=== PATIENT | female | born 1950 | race Caucasian/White ===

== ENCOUNTER 2020-05-08 14:52 | Emergency (ER) | payer MEDICARE, SELFPAY ==
--- NOTE | ~2020-05-08 | CT_ITS ---
EXAMINATION: CT abdomen pelvis wo con DATE: 05/08/2020 15:44 INDICATION: Left lower quadrant abdominal pain. Kidney stone. TECHNIQUE: Computed tomography (CT) of the abdomen and pelvis was performed without intravenous contr ast. Automated exposure control and iterative reconstruction technique were employed. The dose-length product was 506.94 mGy-cm. COMPARISON: None. FINDINGS: The visualized portions of the lung bases demonstrate mild atelectasis. No pleural effusion . The heart size is normal. No pericardial effusion. The liver and spleen are normal. There is a gall stone in the gallbladder, which is normal in size. The pancreas and right adrenal gland are normal. T here is a 2.4 cm mass in left adrenal gland measuring low-attenuation, consistent with an adenoma. Th e kidneys are normal. There is no urolithiasis. There is diverticulosis of the colon without evidence of diverticulitis. There is fat stranding around an epiploic appendage of distal descending colon, c onsistent with epiploic appendagitis. The appendix is normal. There are no dilated loops of bowel. Th ere are no pathologically enlarged lymph nodes. There is no free intraperitoneal fluid. There is fat stranding at the root of the small bowel mesentery, consistent with edema versus inflammation (mesent merrick panniculitis). There is mild thoracic spondylosis and moderate lumbar spondylosis. IMPRESSION: 1. Epiploic appendagitis involving distal descending colon. 2. No urolithiasis. Reviewed, dictated and finalized at location A. N RESOURCES BENEFITS ASSISTANT
[2020-05-08 14:56] VITALS: BP 135/79; PULSE 84; RESP 15; TEMP 36.2; O2SAT 96
--- NOTE | 2020-05-08 15:20 | ED.ABDPAIN ---
HPI - Abdominal Pain General Chief Complaint: Abdominal Pain Stated Complaint: L ABD PAIN Time Seen by Provider: 05/08/20 15:19 Source: patient Mode of arrival: ambulatory Limitations: no limitations History of Present Illness HPI narrative: 70 years old white female presents with intermittent left lower quadrant pain for the last 3 days, almost constant lately. Worse with localized pressure, patient denies radiation of pain, nausea, vomiting, urinary symptoms, fever, chills. History of section x1, partial hysterectomy secondary to fibroid tumor. Related Data Home Medications Medication Instructions Recorded Confirmed amlodipine 05/08/20 lisinopril 05/08/20 metformin mg 05/08/20 omeprazole 05/08/20 Allergies Allergy/AdvReac Type Severity Reaction Status Date / Time iodine Allergy Unknown Anaphylactic Verified 05/08/20 15:11 Shock iohexol Allergy Anaphylactic Verified 05/08/20 15:11 [From contrast - CT, X-RAY] Shock Penicillins AdvReac Unknown Unknown Verified 05/08/20 15:11 Review of Systems Review of Systems: Narrative: CONSTITUTIONAL: Denies fever, chills, or sweats. EYES: Denies visual changes, redness, or discharge. ENT: Denies rhinorrhea, congestion, sore throat, or otalgia. CARDIOVASCULAR: Denies chest pain, palpitations, or edema. RESPIRATORY: Denies cough or dyspnea. GASTROINTESTINAL: Denies abdominal pain, nausea, vomiting, or diarrhea. GENITOURINARY: Denies dysuria or hematuria. SKIN: Denies rash or itching. MUSCULOSKELETAL: Denies back pain, joint pain, or myalgia. NEUROLOGIC: Denies headache, numbness, or weakness. PSYCHIATRIC: Denies anxiety or depression. PMFSH Social History Social History Gender identity (if verbalized by the patient): Female Exam Narrative: Exam Narrative: General appearance: Well-developed, well-nourished Skin: Normal color Head: Normocephalic, nontraumatic Eyes: Clear conjunctiva ENT: Oropharynx normal, ears normal, nose normal Neck: Supple, nontender Chest and respiratory: Airway patent, no respiratory distress, no accessory muscle use Heart: Regular rate/rhythm Abdomen: Soft, moderate tenderness left lower quadrant, no guarding or rebound, no organomegaly, quiet bowel sounds Vascular: Normal peripheral pulses, normal capillary refill. Musculoskeletal: Normal range of motion, nontender back Neurologic: Alert and oriented ?3, STEAM TABLE WORKER is normal as tested, no gross motor deficit Course Course Emergency Course: Stable PEDIATRIC OPHTHALMOLOGIST/PA Physician Supervision Patient feeling much better after IV morphine. Currently is asymptomatic. Reevaluation(s) Date: 05/08/20 Time: 16:28 Vital Signs Vital signs: Vital Signs Temperature 36.2 C L 05/08/20 14:56 Pulse Rate 84 05/08/20 14:56 Respiratory Rate 15 05/08/20 14:56 Blood Pressure 135/79 05/08/20 14:56 Pulse Oximetry 96 05/08/20 14:56 Temperature 36.2 C L 05/08/20 14:56 Pulse Rate 84 05/08/20 14:56 Respiratory Rate 15 05/08/20 14:56 Blood Pressure 135/79 05/08/20 14:56 Pulse Oximetry 96 05/08/20 14:56 MDM - Abdominal Pain MDM Narrative Medical decision making narrative: Patient presents with left lower quadrant pain. Labs, CT abdomen and pelvis with IV contrast, IV fluid ordered. Diverticulitis is my concern. Further plan to follow Differential Diagnosis Differential diagnosis: Likely constipation, diverticulitis and small bowel obstruction Critical Care Time Critical Care Time Critical Care Time: Yes Total Critical Care Time: 20 Discharge Plan Discharge Clinical Impression: Epiploic appendagitis Instructions: Antibiotic Form
--- NOTE | 2020-05-08 15:38 | PC.NURSE ---
Patient to CT at this time.
[2020-05-08 15:44] LABS: Basophils Absolute Auto 0.1 K/mm3 (0.0-0.1); Basophils Percent Auto 0.8 % (0.2-1.2); Eosinophils Absolute Auto 0.1 K/mm3 (0-0.3); Eosinophils Percent Auto 1.4 % (0-4.4); Hematocrit 40.9 % (37.0-47.0); Hemoglobin 13.8 g/dL (12.0-15.0); Immature Granulocyte Absolute 0.02 K/mm3 (0.00-0.031); Immature Granulocyte Percent A 0.2 % (0-0.5); Lymphocytes Absolute Auto 2.19 K/mm3 (0.9-3.2); Lymphocytes Percent Auto 25.6 % (18.3-44.2); Mean Corpuscular HGB Conc 33.7 g/dl (32-36); Mean Corpuscular Hemoglobin 31.4 pg (26-34); Mean Corpuscular Volume 93.2 fl (80-100); Mean Platelet Volume 9.9 fl (7.4-10.4); Monocytes Absolute Auto 0.7 K/mm3 (0.1-0.6); Monocytes Percent Auto 7.7 % (2.6-8.5); Neutrophils Absolute Auto 5.5 K/mm3 (1.3-6.7); Neutrophils Percent Auto 64.3 % (45.5-73.1); Platelet Count Result 273 k/mm3 (150-375); Red Blood Count 4.39 M/mm3 (4.2-5.4); Red Cell Distribution Width 12.3 % (11.5-14.5); White Blood Count 8.6 K/mm3 (4.5-10.0)
[2020-05-08 15:46] LABS: Add Urine Microscopic? NO; Appearance Urine Clear (Clear); Bilirubin Urine Negative (Negative); Blood Urine Negative (Negative); Color Urine Yellow (Yellow); Glucose Urine UA Negative (Negative); Ketones Urine Negative (Negative); Leukocyte Esterase Ur Negative LEU/UL (Negative); Nitrate Urine Negative (Negative); Protein Urine Negative (Negative); Specific Grav Ur 1.014 (1.001-1.035); Urobilinogen Urine Negative mg/dL (<2.0)
[2020-05-08] MEDS: SODIUM CHLORIDE 0.9% IV 1,000 ML 999 ML IV CONT (15:48)
[2020-05-08] MEDS: MORPHINE SULFATE (*CRX) 4 MG/ML INJ IV PUSH (15:48)
[2020-05-08] MEDS: ONDANSETRON INJ 4 MG/2 ML VIAL IV PUSH (15:48)
[2020-05-08 15:55] LABS: Alanine Aminotransferase 25 U/L (4-35); Albumin Level 4.2 g/dL (3.5-5.1); Alkaline Phosphatase 63 U/L (38-126); Anion Gap 5 mmol/L (8-16); Aspartate Amino Transferase 23 U/L (14-36); Bilirubin,Total 0.4 mg/dL (0.2-1.3); Blood Urea Nitrogen 17 mg/dL (7-17); Calcium 9.3 mg/dL (8.4-10.2); Carbon Dioxide 28 mmol/L (22-30); Chloride 106 mmol/L (98-107); Estimated CRCL calculation 66 ml/min; Estimated Glomerular Filt Rate > 60; Glucose 136 mg/dL (65-105); Lipase 351 U/L (23-300); Potassium 3.9 mmol/L (3.4-5.0); Sodium 139 mmol/L (137-145)
[2020-05-08 17:00] VITALS: BP 146/65; PULSE 66; RESP 20; TEMP 36.8; O2SAT 100
== END 2020-05-08 17:00 | disposition home or self-care (01) ==
PROVIDERS: Emergency Provider Emergency Medicine
DX: K63.89 Other specified diseases of intestine (principal)
CPT/HCPCS: 36415; 74176; 80053; 81003; 83690; 85025; 96361; 96374; 96375; 99284; J2270; J2405; J7030

== ENCOUNTER 2021-06-07 13:32 | Inpatient (IN) | payer MEDICARE, SELFPAY ==
[2021-06-07] VITALS (33 sets, daily range): BP systolic 105–146; BP diastolic 72–103; PULSE 83–144; RESP 16–29; TEMP 36.1–36.7; O2SAT 84–100; BMI 33.5
--- NOTE | ~2021-06-07 | NM_ITS ---
EXAMINATION: NM pulmonary perfusion DATE: 06/07/2021 17:27 INDICATION: Dyspnea. Mid sternal chest pain. TECHNIQUE: 5.1 mCi Tc-99m MAA by intravenous route. Scintigraphic images of the chest were obtained. COMPARISON: Chest radiograph dated 06/07/2021 FINDINGS: There is relatively homogeneous perfusion throughout the lungs. No discrete perfusion defects identi fied. IMPRESSION: 1. Low probability for pulmonary embolism. Reviewed, dictated and finalized at location A. FACTURING CONTROLLER
--- NOTE | ~2021-06-07 | XR_ITS ---
EXAMINATION: XR chest 2V DATE: 06/07/2021 14:12 INDICATION: Midsternal chest pain. TECHNIQUE: Frontal and lateral views of the chest were obtained. COMPARISON: CT abdomen and pelvis 05/08/2020 FINDINGS: There is a diffuse interstitial pattern in the lungs. No pleural effusion or pneumothorax. The heart size is normal. IMPRESSION: 1. Diffuse interstitial pattern in the lungs, likely mild pulmonary edema. Reviewed, dictated and finalized at location A. UNICATION ARTS LECTURER
--- NOTE | 2021-06-07 13:36 | ECG_ITS ---
Measurements Intervals [place] Rate: 128 P: 30 DC: 147 QRS: 1 QRSD: 98 T: 93 QT: 323 QTc: 473 Interpretive Statements SINUS TACHYCARDIA DELAYED PRECORDIAL R/S TRANSITION MINIMAL Q WAVES- HIGH LATERAL LEADS BORDERLINE T WAVE ABNORMALITY- LAT/HIGH LAT LEADS ABNORMAL ECG Electronically Signed On 06-07-2021 13:59:52 WARP TRUCKER by Sandro Savage D.O.
--- NOTE | 2021-06-07 13:42 | ED.CHESTPAIN ---
HPI - Chest Pain General Chief Complaint: Chest Pain Stated Complaint: chest pain Time Seen by Provider: 06/07/21 13:42 Source: patient and family Mode of arrival: ambulatory Limitations: no limitations History of Present Illness HPI narrative: Patient is a 71-year-old female with a history of hypertension, hyperlipidemia, presenting for evaluation of chest pain. Patient reports chest pain that began after she had an argument with her daughter. Patient reports radiation of the pain to her back. She denies shortness of breath. She denies pleuritic pain. No cough or hemoptysis. No recent illnesses. Patient states she has a history of Covid a year ago for which she did not require hospitalization. No longstanding Covid symptoms. Patient denies abdominal pain, flank pain. She denies urinary symptoms. No recent surgeries, immobilization. Denies leg swelling or calf pain. Patient has a history of stress test which has been normal in the past. Patient does not smoke. She does have a family history of coronary artery disease. Patient reports dull, aching sensation over her chest. Denies radiation to the shoulder, neck, jaw. Denies arm pain, abdominal pain. Related Data Home Medications Medication Instructions Recorded Confirmed amlodipine 05/08/20 lisinopril 05/08/20 metformin mg 05/08/20 omeprazole 05/08/20 Allergies Allergy/AdvReac Type Severity Reaction Status Date / Time iodine Allergy Unknown Anaphylactic Verified 05/08/20 15:11 Shock iohexol Allergy Anaphylactic Verified 05/08/20 15:11 [From contrast - CT, X-RAY] Shock Penicillins AdvReac Unknown Unknown Verified 05/08/20 15:11 Review of Systems Review of Systems: CONSTITUTIONAL: Denies fever, chills, or sweats. EYES: Denies visual changes, redness, or discharge. ENT: Denies rhinorrhea, congestion, sore throat, or otalgia. CARDIOVASCULAR: Reports chest pain without palpitations or edema RESPIRATORY: Denies cough or dyspnea. GASTROINTESTINAL: Denies abdominal pain, nausea, vomiting, or diarrhea. GENITOURINARY: Denies dysuria or hematuria. SKIN: Denies rash or itching. MUSCULOSKELETAL: Denies back pain, joint pain, or myalgia. NEUROLOGIC: Denies headache, numbness, or weakness. [facility] Social History Social History (Updated 06/07/21 @ 14:48 by Shanna Farah MD) Smoking status: Never smoker Alcohol intake: never Substance use: never Living arrangements: with family Gender identity (if verbalized by the patient): Female Exam Narrative: GENERAL: Awake, alert, conversant HEAD: Normocephalic, atraumatic. EYES: PERRLA and EOMI. ENT: Nares clear, no rhinorrhea or epistaxis. Mucous membranes moist. NECK: Supple. CHEST: Mild tachypnea, coarse breath sounds bilaterally, crackles right lower lobe, no chest wall tenderness HEART: Tachycardic rate, sinus rhythm ABDOMEN:Non distended, non tender EXTREMITIES: Normal range of motion. No edema. SKIN: Warm, dry, no rash. NEURO:No focal deficits. Alert and oriented x3 Course Vital Signs Vital signs: Vital Signs Temperature 36.7 C 06/07/21 13:41 Pulse Rate 125 H 06/07/21 13:41 Respiratory Rate 20 06/07/21 13:41 Blood Pressure 146/95 H 06/07/21 13:41 Pulse Oximetry 94 06/07/21 13:41 Temperature 36.7 C 06/07/21 13:41 Pulse Rate 119 H 06/07/21 15:15 Respiratory Rate 25 H 06/07/21 15:31 Blood Pressure 105/79 06/07/21 14:01 Pulse Oximetry 97 06/07/21 15:34 MDM - Chest Pain MDM Narrative Medical decision making narrative: Patient presenting for evaluation of chest pain. At the time of assessment, patient is tachycardic, hypertensive. Mildly tachypneic with coarse breath sounds, crackles in the right lower lobe. Patient without lower extremity edema, calf pain, tenderness. Differential includes acute CHF exacerbation, STEMI versus unstable angina versus PE, infection. IV access obtained and labs are drawn. Patient was given aspirin, nitroglycerin. P
[2021-06-07] MEDS: ASPIRIN 81 MG CHEWABLE TABLET 324 MG PO (14:17)
--- NOTE | 2021-06-07 14:19 | PC.NURSE ---
Called lab and spoke to Malini to add on D-Dimer
[2021-06-07 14:20] LABS: Basophils Absolute Auto 0.1 K/mm3 (0.0-0.1); Basophils Percent Auto 0.5 % (0.2-1.2); Eosinophils Absolute Auto 0.1 K/mm3 (0-0.3); Eosinophils Percent Auto 0.6 % (0-4.4); Hemoglobin 13.6 g/dL (12.0-15.0); Immature Granulocyte Absolute 0.05 K/mm3 (0.00-0.031); Immature Granulocyte Percent A 0.4 % (0-0.5); Lymphocytes Absolute Auto 2.11 K/mm3 (0.9-3.2); Lymphocytes Percent Auto 18.5 % (18.3-44.2); Mean Corpuscular HGB Conc 33.2 g/dl (32-36); Mean Corpuscular Hemoglobin 30.8 pg (26-34); Mean Platelet Volume 10.1 fl (7.4-10.4); Monocytes Absolute Auto 0.6 K/mm3 (0.1-0.6); Monocytes Percent Auto 5.4 % (2.6-8.5); Neutrophils Absolute Auto 8.5 K/mm3 (1.3-6.7); Neutrophils Percent Auto 74.6 % (45.5-73.1); Platelet Count Result 285 k/mm3 (150-375); Red Blood Count 4.41 M/mm3 (4.2-5.4); Red Cell Distribution Width 13.4 % (11.5-14.5); White Blood Count 11.4 K/mm3 (4.5-10.0)
[2021-06-07 14:24] LABS: INR 0.9; Prothrombin Time 11.3 Seconds (11.1-14.7)
[2021-06-07 14:25] LABS: Partial Thromboplastin Time 25.7 SECONDS (22.3-36.8)
[2021-06-07 14:28] LABS: D Dimer 0.54 ug/mL (<0.48)
[2021-06-07] MEDS: ONDANSETRON INJ 4 MG/2 ML VIAL IV PUSH (14:32)
[2021-06-07] MEDS: MORPHINE SULFATE (*CRX) 4 MG/ML INJ IV PUSH (14:32)
[2021-06-07] MEDS: SODIUM CHLORIDE 0.9% IV 1,000 ML 999 ML IV CONT (14:33)
[2021-06-07 15:00] LABS: NT Pro B Type Natriuretic Pept 1230 pg/mL (5-100)
[2021-06-07] MEDS: NITROGLYCERIN SL 0.4 MG TABLET SUBLINGUAL (15:06)
[2021-06-07] MEDS: FUROSEMIDE INJ 40 MG/4 ML VIAL 20 MG IV PUSH (15:06)
--- NOTE | 2021-06-07 15:13 | PC.NURSE ---
Called lab and spoke to Shanna to add on MG
[2021-06-07] MEDS: MAGNESIUM SULF 2 GM/WATER 50ML 2 GM/50 ML BAG IVPB (15:24)
[2021-06-07 15:26] LABS: Alveolar/Arterial O2 Gradient 550.2 mmHg; Base Excess ABG -2.7 mEq/l (+/-2.0); Carboxyhemoglobin 0.6 % THb (0-2.0); Fractional Inspired Oxygen 100 %; HCO3 ABG 22.4 mEq/l (22.0-26.0); Methemoglobin ABG 0.1 %THb (0-1.5); Oxygen Content ABG 19.8 %vol (16.0-22.0); Oxygen Saturation ABG 98.3 % (95.0-100.0); PO2 ABG 122.8 mmHg (80.0-100.0); PO2 FiO2 Ratio Arterial Blood 1.23 %; Reduced Hemoglobin 2.3 %THb (0-5.0); Total Hemoglobin 14.4 g/dL (12.0-18.0); pH ABG 7.366 (7.350-7.450)
[2021-06-07 15:27] LABS: Device BIPAP; Expiratory Pressure 5 cmH2O; Inspiratory Pressure 12 cmH2O; Modified Allen's Test Pass; Site Drawn LEFT RADIAL
[2021-06-07 15:28] LABS: Magnesium 1.9 mg/dL (1.6-2.3)
[2021-06-07] MEDS: diphenhydrAMINE HCl INJ 50 MG/ML VIAL IV PUSH (15:37)
[2021-06-07] MEDS: methylPREDNISolone SOD SUCC 125 MG VIAL IV PUSH (15:38)
--- NOTE | 2021-06-07 16:10 | PM.IMHP ---
H&P: HPI History of Present Illness Date/Time: 06/07/21 16:10 Chief Complaint: Chest pain. Narrative: This is 71-year-old female with hypertension, hyperlipidemia, diet-controlled diabetes mellitus, and GERD who presented to the emergency department for evaluation of chest pain. She had an argument with her daughter this morning and shortly thereafter she started to experience substernal chest discomfort that she describes as sharp in nature though occasionally dull and aching. The pain was constant but has improved significantly since she was given aspirin, morphine, and nitroglycerin in the emergency department. The pain did not radiate and she did not notice any significant aggravating factors. She denies associated near-syncope, diaphoresis, nausea, and vomiting. Interestingly, she also denies shortness of breath however in the emergency department her SpO2 dropped to well into the low 80s requiring BiPAP at 100% FiO2 to bring her oxygen saturations up into the 90s. Chest x-ray showed diffuse interstitial pattern in the lungs felt to be related to pulmonary edema. Bedside echocardiogram with Dr. Farah showed Grady B lines consistent with pulmonary edema and a reduced ejection fraction and she is being admitted in this setting. Initially the patient did not want to stay in the hospital as she and her are to be traveling to [place] tomorrow though after a fairly lengthy discussion she agreed to stay overnight. She has no known history of coronary artery disease and has no history of venous thromboembolism. She has not had exertional chest pain or pleuritic pain. No palpitations, orthopnea, paroxysmal nocturnal dyspnea, or lower extremity edema. Review of Systems Review of Systems: Twelve systems were reviewed and are negative except for as per HPI. [facility] Past Medical History Medical History (Updated 06/07/21 @ 23:05 by Amber Samson PA-C) Anxiety Arthritis Gastroesophageal reflux disease Hyperlipidemia Hypertension Migraine Type 2 diabetes mellitus Surgical History Surgical History (Updated 06/07/21 @ 22:55 by Amber Samson PA-C) History of ankle surgery Left x2. History of section History of hysterectomy History of tonsillectomy Family History Family History (Updated 06/07/21 @ 22:56 by Amber Samson PA-C) Other Hypertension Social History Social History (Updated 06/07/21 @ 22:57 by Amber G. Gerling, PA-C) Social History: Resides in [place] with her . Lifelong nonsmoker. No alcohol abuse. Surrogate decision maker: Trey Fuenteser, spouse. Code status: Full code. Meds Home Medications and Allergies Home Medications Medication Instructions Recorded Confirmed Type amlodipine 2.5 mg PO DAILY 05/08/20 06/07/21 History lisinopril 40 mg PO DAILY 05/08/20 06/07/21 History omeprazole 40 mg PO DAILY 05/08/20 06/07/21 History ezetimibe 10 mg PO DAILY 06/07/21 06/07/21 History meloxicam 15 mg PO DAILY 06/07/21 06/07/21 History Allergies Allergy/AdvReac Type Severity Reaction Status Date / Time iodine Allergy Unknown Anaphylactic Verified 05/08/20 15:11 Shock iohexol Allergy Anaphylactic Verified 05/08/20 15:11 [From contrast - CT, X-RAY] Shock Penicillins AdvReac Unknown Unknown Verified 05/08/20 15:11 Vital Signs Vital Signs - 24 hr 06/07/21 13:41 06/07/21 13:42 06/07/21 13:43 Temperature 98.1 F Pulse Rate 129 H 130 H 125 H Respiratory Rate 20 29 H 18 Blood Pressure 132/103 H 146/95 H Pulse Oximetry 96 95 95 06/07/21 13:45 06/07/21 13:50 06/07/21 14:00 Temperature Pulse Rate 126 H 131 H 129 H Respiratory Rate 25 H 19 Blood Pressure Pulse Oximetry 96 93 06/07/21 14:01 06/07/21 14:23 06/07/21 15:12 Temperature Pulse Rate 123 H 120 H 119 H Respiratory Rate 21 H 25 H 23 H Blood Pressure 105/79 Pulse Oximetry 89 L 87 L 86 L 06/07/21 15:14 06/07/21 15:15 06/07/21 15:31 Temperature Pulse Rate 1
--- NOTE | 2021-06-07 16:29 | PM.CNCAR ---
Assessment and Plan Additional Plan This is a 71-year-old lady who presents with chief complaint of chest pain that began this morning about 6 or 7 hours ago. She does not have any acute ST segment changes on her electrocardiogram. No prior cardiac history. Of concern is her oxygen requirements are increasing as she is in the emergency room this afternoon. Chest x-ray does show some pulmonary congestion and she sounds congested on physical exam as well. The patient is in a sinus tachycardia with no acute ST and T changes. Electrolytes and troponin levels are pending. The etiology of this is unknown at this time but she clinically sounds like she is in some heart failure I would start giving her IV furosemide and consider anticoagulating her since chest pain has been her chief presenting complaint. Echocardiogram should be done to assess LV systolic function and troponin level should be trended. History of Present Illness History of Present Illness Consult date/time: 06/07/21 16:29 Consult reason: chest pain Reason For Visit: chest pain Narrative: This is a 71-year-old woman I am seeing in the emergency room at the request of the ED staff and hospitalist because of chest pain with which she came to the hospital this afternoon. The patient states she is not known to have any cardiac problems prior to this. She started to have some chest pain at about 9:00 a.m. this morning as she was having a heated argument with her daughter. She I did not ask questions about what they were tied topic of the argument was. During this event she started to experience some chest pain that she describes as a sharp central like pain in the substernal region. It is not radiating to any other location it is not causing any diaphoresis or nausea. She decided to come to the emergency room because of these symptoms. In the emergency room she did not appear to be significantly unstable but according to the staff during the course of the afternoon her oxygen requirements are increasing and she is now on a BiPAP mask. She otherwise states to be pretty comfortable and is hoping to be discharged from the hospital. He is not having any COVID like symptoms and in this setting is being seen in consultation. Her electrocardiogram shows sinus tachycardia with no significant acute ST segment changes. Her CBC shows a modest leukocytosis of 11,000 no other lab data is back her electrolytes and troponin levels are pending at the time of this dictation. The patient does not have any clinical reason such as immobility illness a to have a pulmonary embolism. She is allergic contrast stating that she had a CT scan of her abdomen done the past with contrast that resulted in difficulty breathing. Her chest x-ray demonstrates modest bilateral congestion suggestive of mild pulmonary edema. Review of Systems Constitutional: Constitutional: Reports no additional constitutional complaints Eyes: Eyes: Reports no additional eye complaints ENT: Reports system reviewed and no additional complaints, except as documented Cardiovascular: Cardiovascular: Reports no additional cardiovascular complaints Respiratory: Respiratory: Reports as per HPI Gastrointestinal: Gastrointestinal: Reports no additional gastrointestinal complaints Musculoskeletal: Musculoskeletal: Reports no additional musculoskeletal complaints Integumentary/Breasts: Skin/Breast: Reports system reviewed and no additional complaints, except as docu Endocrine: Endocrine: Reports no additional endocrine complaints Hematologic/Lymphatic: Hematologic/Lymphatic: Reports no additional hematologic/lymphatic complaints Allergic/Immunologic: Allergic/Immunologic: Reports no additional allergic/immunologic complaints [facility] Social History Social History (Updated 06/07/21 @ 14:48 by Shanna Farah MD) Smoking status: Never smoker Alcohol intake: never Substance use: never Living arrangements: with family Gender identity (
[2021-06-07 16:44] LABS: Alanine Aminotransferase 37 U/L (4-35); Alkaline Phosphatase 72 U/L (38-126); Anion Gap 7 mmol/L (8-16); Aspartate Amino Transferase 33 U/L (14-36); Bilirubin,Total 0.4 mg/dL (0.2-1.3); Blood Urea Nitrogen 15 mg/dL (7-17); Calcium 9.2 mg/dL (8.4-10.2); Carbon Dioxide 22 mmol/L (22-30); Chloride 111 mmol/L (98-107); Estimated CRCL calculation 68 ml/min; Estimated Glomerular Filt Rate > 60; Glucose 128 mg/dL (65-110); Lipase 25 U/L (23-300); Sodium 140 mmol/L (137-145)
[2021-06-07 16:45] LABS: SARS-CoV-2 RNA PCR Negative
--- NOTE | 2021-06-07 17:10 | ECG_ITS ---
Measurements Intervals [place] Rate: 111 P: 37 [place]: 148 QRS: 18 QRSD: 93 T: 100 QT: 343 QTc: 467 Interpretive Statements SINUS TACHYCARDIA MINIMAL Q WAVES- HIGH LATERAL LEADS NONSPECIFIC T-WAVE ABNORMALITY- ANTEROLAT/HIGH LAT LEADS ABNORMAL ECG Electronically Signed On 06-07-2021 20:16:28 FINISHER TAILOR APPRENTICE by Sandro Savage D.O.
[2021-06-07] MEDS: HEPARIN SODIUM 5,000 UNITS/ML VIAL 3500 UNITS IV PUSH (17:30)
[2021-06-07] MEDS: HEPARIN SOD/D5W 100 UNITS/ML 25,000 UNITS/250 ML BAG 7 UNITS IV CONT (17:32)
--- NOTE | 2021-06-07 19:47 | ADMGEN ---
This patient, Marianne Maurice, was admitted to IMU Room 211-01. Patient/family oriented to hospital policies and general routines including ID bracelet, bed and alarms, visiting hours, pain management, procedures, bathroom and other care routines, personal items, smoking policy, room service/diet, and visiting hours. Information on how to activate the Rapid Response Team has been discussed. Patient/Family are encouraged to report perceived risks to care and to ask questions if they do not understand what they are told or what they should do.
[2021-06-07 23:56] LABS: Partial Thromboplastin Time 40.1 SECONDS (22.3-36.8)
[2021-06-08] VITALS (17 sets, daily range): BP systolic 108–128; BP diastolic 56–93; PULSE 74–108; RESP 20–22; TEMP 35.6–36.8; O2SAT 96–100
[2021-06-08] MEDS: HEPARIN SODIUM 5,000 UNITS/ML VIAL 4000 UNITS IV PUSH ×2 (00:15→13:21)
[2021-06-08] MEDS: FUROSEMIDE INJ 40 MG/4 ML VIAL 20 MG IV PUSH ×3 (00:15→16:06)
[2021-06-08 06:27] LABS: Basophils Percent Auto 0.2 % (0.2-1.2); Hematocrit 39.9 % (37.0-47.0); Hemoglobin 13.3 g/dL (12.0-15.0); Immature Granulocyte Absolute 0.05 K/mm3 (0.00-0.031); Immature Granulocyte Percent A 0.5 % (0-0.5); Lymphocytes Absolute Auto 1.24 K/mm3 (0.9-3.2); Lymphocytes Percent Auto 11.3 % (18.3-44.2); Mean Corpuscular HGB Conc 33.3 g/dl (32-36); Mean Corpuscular Hemoglobin 31.3 pg (26-34); Mean Corpuscular Volume 93.9 fl (80-100); Mean Platelet Volume 9.7 fl (7.4-10.4); Monocytes Absolute Auto 0.4 K/mm3 (0.1-0.6); Monocytes Percent Auto 3.4 % (2.6-8.5); Neutrophils Absolute Auto 9.3 K/mm3 (1.3-6.7); Neutrophils Percent Auto 84.6 % (45.5-73.1); Platelet Count Result 250 k/mm3 (150-375); Red Blood Count 4.25 M/mm3 (4.2-5.4); Red Cell Distribution Width 13.8 % (11.5-14.5)
[2021-06-08 06:39] LABS: Partial Thromboplastin Time 90.2 SECONDS (22.3-36.8)
[2021-06-08 07:20] LABS: LDL Cholesterol Direct 111 mg/dL
[2021-06-08 07:33] LABS: Alanine Aminotransferase 45 U/L (4-35); Albumin Level 3.7 g/dL (3.5-5.1); Alkaline Phosphatase 73 U/L (38-126); Anion Gap 6 mmol/L (8-16); Aspartate Amino Transferase 38 U/L (14-36); Bilirubin,Total 0.4 mg/dL (0.2-1.3); Blood Urea Nitrogen 17 mg/dL (7-17); Calcium 8.9 mg/dL (8.4-10.2); Carbon Dioxide 23 mmol/L (22-30); Chloride 110 mmol/L (98-107); Cholesterol 187 mg/dL (0-200); Estimated CRCL calculation 68 ml/min; Estimated Glomerular Filt Rate > 60; Glucose 142 mg/dL (65-110); HDL Direct 67 mg/dL; Magnesium 2.2 mg/dL (1.6-2.3); Potassium 4.4 mmol/L (3.4-5.0); Sodium 139 mmol/L (137-145); Triglycerides 107 mg/dL (<150)
[2021-06-08 07:49] LABS: Thyroid Stimulating Hormone Reflex 0.835 uIU/mL (0.465-4.68)
[2021-06-08 08:04] LABS: Hemoglobin A1C 6.2 % (<5.7)
[2021-06-08] MEDS: PERFLUTREN LIPID MICROSPHERES 1.5 ML VIAL DILUTED TO 10 ML TOTAL VOLUME IV PUSH (08:07)
--- NOTE | 2021-06-08 08:07 | IVDEFINITY ---
Prior to administration of IV Definity the patient was educated on the risks and benefits of the imaging enhancing agent including potential adverse side effects. The patient verbalized understanding. Allergies were verified. No exclusion criteria were identified and at least one of the following inclusion criteria were met: 1) physician request, 2) patient technically difficult to image (per the [place] [employer] guidelines of two or more segments not discernable within the apical view), or 3) questionable left ventricular function. ?
--- NOTE | 2021-06-08 08:09 | PC.NURSE ---
At 0759, this nurse went to assess patient heparin gtt. Heparin gtt. currently going at 900 units/hr or 9mls/hr at time of assessment. Morning ptt therapeutic and no drip titration needed. Heparin gtt continuing at 900 units/hr.
[2021-06-08] MEDS: lisinopriL 20 MG TABLET 40 MG PO (08:16)
[2021-06-08] MEDS: amLODIPine BESYLATE 2.5 MG TABLET PO (08:17)
[2021-06-08] MEDS: EZETIMIBE 10 MG TABLET PO (08:17)
[2021-06-08] MEDS: MELOXICAM 7.5 MG TABLET 15 MG PO (08:17)
[2021-06-08] MEDS: PANTOPRAZOLE 40 MG TABLET PO (08:18)
[2021-06-08 08:27] LABS: Glucose Point of Care 127 mg/dl (65-105)
--- NOTE | 2021-06-08 10:25 | PM.PNCARD ---
Progress Note: A&P Assessment and Plan (1) Non-ST elevation myocardial infarction (NSTEMI): Code(s): I21.4 - Non-ST elevation (NSTEMI) myocardial infarction Status: Acute Assessment and Plan: 71-year-old female with hypertension, dyslipidemia-admitted to the hospital with chest pain. EKG showed sinus tachycardia, T-wave abnormalities suggestive of possible ischemia. Troponins are elevated. V/Q scan low probability PE. I personally reviewed patient's echocardiogram which showed severe LV systolic dysfunction with segmental wall motion abnormality with akinetic anteroseptal, anterior and apical segments with relatively preserved basal segment; ejection fraction about 25-30%. -continue unfractionated heparin for now. Monitor APTT -aspirin, beta-johanny, Kenn inhibitor, statin -patient will need ischemic workup with coronary angiogram to rule out obstructive CAD. Other possibility for LV systolic dysfunction is takotsubo cardiomyopathy given echo findings and emotional stress related to family argument prior to the presentation. Unfortunately, patient was not NPO today, and had breakfast today. Cardiac catheterization will be scheduled for tomorrow, unless there is a need to do it urgently in the setting of any clinical deterioration and/or electrical instability. Patient will need to be pretreated again with steroids and diphenhydramine given her history of dye allergy. -I discussed benefits, risks and alternatives of cardiac catheterization with the patient, and she is willing to proceed with the procedure. (2) Congestive heart failure: Code(s): I50.9 - Heart failure, unspecified Status: Acute Assessment and Plan: Patient presented with chest pain, and is in congestive heart failure with echocardiogram showing severe LV dysfunction with segmental wall motion abnormality. -continue IV diuresis with furosemide with close monitoring of electrolytes and renal function. -continue KENN-inhibitor for now; start low-dose carvedilol. Other standard medications for CHF with reduced ejection fraction to be initiated after cardiac catheterization is complete. Prefer ARNI over ACEI or ARB. Subjective Date/time seen: 06/08/21 10:25 Date of service 06/08/2021: Patient admitted to the hospital with chest pain. She denies chest pain at present. She denies any shortness of breath. No palpitation, dizziness syncope. On telemetry, she has been in sinus rhythm. Patient is on unfractionated heparin. Exam Narrative: PHYSICAL EXAMINATION: GENERAL: Alert, oriented, no acute distress MENTAL STATUS: affect appropriate to mood EYES: Extraocular movements intact, no pallor EARS: External ears appear normal, hearing grossly normal NOSE: Normal and patent, no discharge MOUTH: Mucous membranes moist, tongue normal NECK: Supple, no JVD CHEST: Good respiratory effort, bibasilar crackles HEART: Normal rate, regular rhythm, normal S1 and S2 ABDOMEN: Soft, nontender NEUROLOGICAL: Alert, oriented, normal speech, no gross motor deficits MUSCULOSKELETAL: No major deformity, no amputation EXTREMITIES: No pedal edema, no clubbing, no cyanosis SKIN: no rash on the exposed area, no cyanosis PSYCHIATRIC: Normal mood, appropriate affect Objective Data Vital Signs Vital Signs: Vital Signs - 24 hr 06/07/21 13:41 06/07/21 13:42 06/07/21 13:43 Temperature 36.7 C Pulse Rate 129 H 130 H 125 H Respiratory Rate 20 29 H 18 Blood Pressure 132/103 H 146/95 H Pulse Oximetry 96 95 95 06/07/21 13:45 06/07/21 13:50 06/07/21 14:00 Temperature Pulse Rate 126 H 131 H 129 H Respiratory Rate 25 H 19 Blood Pressure Pulse Oximetry 96 93 06/07/21 14:01 06/07/21 14:23 06/07/21 15:12 Temperature Pulse Rate 123 H 120 H 119 H Respiratory Rate 21 H 25 H 23 H Blood Pressure 105/79 Pulse Oximetry 89 L 87 L 86 L 06/07/21 15:14 06/07/21 15:15 06/07/21 15:30 Temperature Pulse Rate 119 H 120 H Resp
--- NOTE | 2021-06-08 11:41 | PM.IMPN ---
Progress Note: A&P Assessment and Plan (1) Non-ST elevation myocardial infarction (NSTEMI): Code(s): I21.4 - Non-ST elevation (NSTEMI) myocardial infarction Status: Acute Assessment and Plan: Patient has no known history of cardiac disease. She states her symptoms came on after an emotional and intense argument with her daughter. EKG showing bilateral small Q-waves ST T wave changes. Repeat EKG showing ST T wave changesin the anteriolateral and high lateral leads. Troponin peaked at 1.67. Plan for [facility] i the morning. Patient chest pain free now. Continue ASA, Coreg and Lipitor. Will hold Mobic for now. Continue Heparin drip. (2) Congestive heart failure: Code(s): I50.9 - Heart failure, unspecified Status: Acute Assessment and Plan: Chest x-ray shows diffuse interstitial pattern consistent with pulmonary edema. BNP was 1230. Echo showing EF 25-30% with diastolic dysfunction and akinetic segments. Continue judicious IV diuresis with close monitoring of volume status and renal function. Wean O2 as tolerated. (3) Acute respiratory failure with hypoxia: Code(s): J96.01 - Acute respiratory failure with hypoxia Status: Acute Assessment and Plan: Secondary to pulmonary edema. V/Q scan shows low probability for pulmonary embolism. ABG 7.36/40/123. Patient wore BiPAP some the evening last night. Wean O2 as tolerated. (4) Type 2 diabetes mellitus: Code(s): E11.9 - Type 2 diabetes mellitus without complications Status: Acute Assessment and Plan: A1c 6.2. Diet-controlled. Add sliding scale. (5) Hypertension: Code(s): I10 - Essential (primary) hypertension Status: Acute Assessment and Plan: Patient's blood pressure was reviewed on 06/08 Blood pressure remains well controlled. Will continue current medications. (6) Hyperlipidemia: Code(s): E78.5 - Hyperlipidemia, unspecified Status: Acute Assessment and Plan: TG 107, TC 187, LDL 111 and HDL 67. Continue ezetimibe and Lipitor. LFTs noted. (7) Elevated LFTs: Code(s): R79.89 - Other specified abnormal findings of blood chemistry Status: Acute Assessment and Plan: AST/ALT mildly elevated. [place] related to hepatic congestion. Follow for now. Subjective Date/time seen: 06/08/21 11:41 Interval history: 71yo female with DM and HTN here for chest pain and found to have CHF and NSTEMI. No complaints of chest pain or shortness of breath. She has not been having any changes in her condition prior to admission such as increasing dyspnea on exertion or chest pain with exertion. She states the chest pain occurred after having intense argument with her daughter. She has had this type of discomfort in the past after emotional events but been milder. She does not wear oxygen at home. She does not have sleep apnea and does not wear BiPAP at home. Exam Narrative: AF 96.0 114/56 98 22 95% 2L Gen - NARD Chest -bibasilar inspiratory crackles. Normal respiratory rate CV - RRR S1/S2. No murmurs. JVP not elevated. Telemetry showing normal sinus rhythm 1 episode of 3 beat run of nonsustained V tach Abd - Soft, NT/ND, Positive BS Ext - No pedal edema Psych - Nml mood and affect Skin - Warm and dry Objective Data Vital Signs Vital Signs: Vital Signs - 24 hr 06/07/21 13:41 06/07/21 13:42 06/07/21 13:43 Temperature 98.1 F Pulse Rate 129 H 130 H 125 H Respiratory Rate 20 29 H 18 Blood Pressure 132/103 H 146/95 H Pulse Oximetry 96 95 95 06/07/21 13:45 06/07/21 13:50 06/07/21 14:00 Temperature Pulse Rate 126 H 131 H 129 H Respiratory Rate 25 H 19 Blood Pressure Pulse Oximetry 96 93 06/07/21 14:01 06/07/21 14:23 06/07/21 15:12 Temperature Pulse Rate 123 H 120 H 119 H Respiratory Rate 21 H 25 H 23 H Blood Pressure 105/79 Pulse Oximetry 89 L 87 L 86 L 06/07/21 15:14 06/07/21 15:15 06/07/21 15:30
--- NOTE | 2021-06-08 12:26 | PC.NURSE ---
Cardiac admission folder with cardiac rehabilitation information provided to patient at 1216.
[2021-06-08 12:35] LABS: Glucose Point of Care 109 mg/dl (65-105)
[2021-06-08 12:35] LABS: Partial Thromboplastin Time 43.9 SECONDS (22.3-36.8)
[2021-06-08 16:07] LABS: Glucose Point of Care 135 mg/dl (65-105)
[2021-06-08] MEDS: HEPARIN SOD/D5W 100 UNITS/ML 25,000 UNITS/250 ML BAG 11 UNITS IV CONT (16:41)
[2021-06-08] MEDS: predniSONE 40 MG, predniSONE 10 MG 50 MG PO (19:40)
[2021-06-08 19:52] LABS: Partial Thromboplastin Time 61.5 SECONDS (22.3-36.8)
[2021-06-08 20:44] LABS: Glucose Point of Care 151 mg/dl (65-105)
[2021-06-08] MEDS: carvediloL 3.125 MG TABLET PO (22:11)
[2021-06-08] MEDS: HEPARIN SODIUM 5,000 UNITS/ML VIAL 2500 UNITS IV PUSH (22:12)
[2021-06-08] MEDS: LORazepam (*CRX) 0.5 MG TABLET PO (22:43)
--- NOTE | 2021-06-08 23:19 | ECHO_ITS ---
Patient Info Name: Marianne Maurice Age: 71 years : 1950 Gender: Female Ht: 60 in Wt: 171 lbs BSA: 1.85 m2 HR: 74 bpm BP: 116 / 67 mmHg Heart Rhythm: Sinus Rhythm Technical Quality: Fair Exam Date: 06/08/2021 7:19 AM Exam Location: [facility] Pulmonary Patient Status: Inpatient Admit Date: 06/07/2021 Staff Ordering Physician: Amber Samson PA-C Senior Inspector: Patricia Kirkpatrick RDCS Attending Provider: Hoa Mukherjee MD Referring Physician: [place] JANE; Exam Type: CA echo dop color flow w con Study Info Indications - NSTEMI Complete two-dimensional, color flow and Doppler transthoracic echocardiogram is performed. Summary 1. Complete two-dimensional, color flow and Doppler transthoracic echocardiogram is performed. 2. Echo contrast was used. Borderline LV enlargement, mild LVH; severe LV systolic dysfunction with segmental wall motion abnormality-ejection fraction approximately 25-30%. Anterior, mid anteroseptal, mid inferoseptal and apical segments are akinetic; basal segments are relatively preserved. No LV thrombus is visualized. Diastolic dysfunction is present with elevated left atrial pressures. Mild left atrial enlargement. Mitral valve mildly thickened, mild mitral regurgitation. Aortic valve mildly sclerotic, mild aortic stenosis with valve area 2.3 cm2, mild aortic regurgitation. Mild tricuspid and pulmonic regurgitation , moderate pulmonary hypertension, RVSP 52 mmHg. Sinus rhythm. Left Ventricle Left ventricular systolic function is severely reduced, estimated at 25-30%. There is mildly increased left ventricular wall thickness. The left ventricular diastolic function is abnormal. Right Ventricle Right ventricular chamber dimension is normal. Left Atria Left atrial chamber dimension is mildly enlarged. Right Atria Right atrial chamber dimension is normal. Aortic Valve There is mild aortic valve sclerosis. There is mild aortic valve stenosis with a peak velocity of 124.09 cm/s, mean gradient of 3 mmHg, and aortic valve area of 2.29 cm2. There is mild aortic valve regurgitation. Pulmonic Valve The pulmonic valve is normal. There is mild pulmonic regurgitation. Mitral Valve The mitral valve has thickened leaflets. There is mild mitral valve regurgitation. Tricuspid Valve The tricuspid valve leaflets are normal. There is mild tricuspid valve regurgitation. Moderate pulmonary hypertension, estimated pulmonary arterial systolic pressure is 52 mmHg. Pericardium/Pleural The pericardium appears epicardial fat pad. There is trivial pericardial effusion. Inferior Vena Cava Normal inferior vena cava with >50% collapse upon inspiration consistent with normal right atrial pressure, 10 mmHg. Aorta The aortic root size at the sinus of Valsalva is normal. Left Ventricular Outflow Tract Name Value Normal LVOT 2D LVOT Diameter 2.02 cm LVOT Doppler LVOT Peak Gradient 3 mmHg LVOT Mean Gradient 2 mmHg LVOT VTI 16.47 cm LVOT VTI/AV VTI Ratio 0.72
[2021-06-09] VITALS (18 sets, daily range): BP systolic 107–136; BP diastolic 53–86; PULSE 65–108; RESP 16–20; TEMP 36.2–36.4; O2SAT 92–99
[2021-06-09] MEDS: predniSONE 40 MG, predniSONE 10 MG 50 MG PO ×2 (02:22→07:58)
[2021-06-09 05:03] LABS: Hemoglobin 13.2 g/dL (12.0-15.0); Mean Corpuscular HGB Conc 33.8 g/dl (32-36); Mean Corpuscular Volume 91.5 fl (80-100); Platelet Count Result 239 k/mm3 (150-375); Red Blood Count 4.26 M/mm3 (4.2-5.4); Red Cell Distribution Width 13.6 % (11.5-14.5)
[2021-06-09 05:19] LABS: Alanine Aminotransferase 38 U/L (4-35); Albumin Level 3.8 g/dL (3.5-5.1); Alkaline Phosphatase 68 U/L (38-126); Anion Gap 6 mmol/L (8-16); Aspartate Amino Transferase 29 U/L (14-36); Bilirubin,Total 0.4 mg/dL (0.2-1.3); Blood Urea Nitrogen 20 mg/dL (7-17); Calcium 9.2 mg/dL (8.4-10.2); Carbon Dioxide 28 mmol/L (22-30); Chloride 102 mmol/L (98-107); Estimated CRCL calculation 59 ml/min; Estimated Glomerular Filt Rate > 60; Glucose 184 mg/dL (65-110); Magnesium 2.2 mg/dL (1.6-2.3); Potassium 4.2 mmol/L (3.4-5.0); Sodium 136 mmol/L (137-145)
[2021-06-09 05:26] LABS: Partial Thromboplastin Time 112.5 SECONDS (22.3-36.8)
[2021-06-09] MEDS: diphenhydrAMINE HCl CAP 25 MG CAPSULE 50 MG PO (07:58)
[2021-06-09] MEDS: ASPIRIN 325 MG ENTERIC TABLET PO (07:59)
[2021-06-09] MEDS: PANTOPRAZOLE 40 MG TABLET PO (07:59)
[2021-06-09] MEDS: ATORVASTATIN 40 MG TABLET PO (07:59)
[2021-06-09] MEDS: EZETIMIBE 10 MG TABLET PO (07:59)
[2021-06-09 08:09] LABS: Glucose Point of Care 171 mg/dl (65-105)
--- NOTE | 2021-06-09 08:34 | WPDMODSED ---
Moderate Sedation Note-Pt Data Patient Data Diagnosis: Chest pain, reduced left ventricular systolic function Present Complaint: no complaints this morning admitted with chest pain and dyspnea following an argument Procedure to be performed/Plan: left heart catheterization Allergies Allergy/AdvReac Type Severity Reaction Status Date / Time iodine Allergy Unknown Anaphylactic Verified 05/08/20 15:11 Shock iohexol Allergy Anaphylactic Verified 05/08/20 15:11 [From contrast - CT, X-RAY] Shock Penicillins AdvReac Unknown Unknown Verified 05/08/20 15:11 Home Medications Medication Instructions Recorded Confirmed Type amlodipine 2.5 mg PO DAILY 05/08/20 06/07/21 History lisinopril 40 mg PO DAILY 05/08/20 06/07/21 History omeprazole 40 mg PO DAILY 05/08/20 06/07/21 History ezetimibe 10 mg PO DAILY 06/07/21 06/07/21 History meloxicam 15 mg PO DAILY 06/07/21 06/07/21 History Current Medications: Active Medications Aspirin (Aspirin 325 Mg Enteric Tablet) 325 mg PO QAM [facility] Last Admin: 06/09/21 07:59 Dose: 325 mg Documented by: Atorvastatin Calcium (Atorvastatin 40 Mg Tablet) 40 mg PO DAILY [facility] Last Admin: 06/09/21 07:59 Dose: 40 mg Documented by: Carvedilol (Carvedilol 3.125 Mg Tablet) 3.125 mg PO Q12HR [facility] Last Admin: 06/08/21 22:11 Dose: 3.125 mg Documented by: Dextrose (Dextrose 50% 25 Gm/50 Ml Syringe) 12.5 gm IV PUSH PRN PRN; Protocol PRN Reason: Hypoglycemia Ezetimibe (Ezetimibe 10 Mg Tablet) 10 mg PO DAILY [facility] Last Admin: 06/09/21 07:59 Dose: 10 mg Documented by: Furosemide (Furosemide Inj 40 Mg/4 Ml Vial) 20 mg IV PUSH BID [facility] Last Admin: 06/08/21 16:06 Dose: 20 mg Documented by: Glucagon (Glucagon For Inj 1 Mg Vial) 1 mg IM PRN PRN; Protocol PRN Reason: Hypoglycemia Glucose (Glucose Oral Gel 15 Gm Of Glucse In 37.5 Gm Tube) 15 gm PO PRN PRN; Protocol PRN Reason: Hypoglycemia Heparin Sodium (Porcine) (Heparin Sodium 5,000 Units/Ml Vial) 4,000 units IV PUSH PRN PRN PRN Reason: aPTT less than 55 seconds Last Admin: 06/08/21 13:21 Dose: 4,000 units Documented by: Heparin Sodium (Porcine) (Heparin Sodium 5,000 Units/Ml Vial) 2,500 units IV PUSH PRN PRN PRN Reason: aPTT 55 - 70 seconds Last Admin: 06/08/21 22:12 Dose: 2,500 units Documented by: Dextrose (Dextrose 5% 1,000 Ml) 1,000 mls @ 100 mls/hr IVPB PRN PRN; Protocol PRN Reason: Hypoglycemia Heparin Sodium/Dextrose (Heparin Sodium/D5w 100 Units/Ml) 25,000 units in 250 mls @ 10 mls/hr IV CONT .Q24H JAYME; Protocol Insulin Aspart (Insulin Aspart (*Bkc) 100 Units/Ml) 4 - 8 units SUB-Q TIDWM JAYME; Protocol Last Admin: 06/09/21 08:09 Dose: Not Given Documented by: Lisinopril (Lisinopril 20 Mg Tablet) 40 mg PO DAILY [facility] Last Admin: 06/08/21 08:16 Dose: 40 mg Documented by: Meloxicam (Meloxicam 7.5 Mg Tablet) 15 mg PO DAILY@0800 [facility] Last Admin: 06/08/21 08:17 Dose: 15 mg Documented by: Pantoprazole Sodium (Pantoprazole 40 Mg Tablet) 40 mg PO QAM [facility] Last Admin: 06/09/21 07:59 Dose: 40 mg Documented by: Sedation/Anesthesia: No previous sedation/anesthesia problems (including family history). [facility] Past Medical History Medical History (Updated 06/08/21 @ 12:00 by Santosh Mosley MD) Anxiety Arthritis Gastroesophageal reflux disease Hyperlipidemia Hypertension Migraine Type 2 diabetes mellitus Surgical History Surgical History (Updated 06/07/21 @ 22:55 by Amber Samson PA-C) History of ankle surgery Left x2. History of section History of hysterectomy History of tonsillectomy Family History Family History (Updated 06/07/21 @ 22:56 by Amber Samson PA-C) Other Hypertension Social History Social History (Updated 06/07/21 @ 22:57 by Amber Samson PA-C) Social History: Resides in [place] with her . Lifelong nonsmoker. No alcohol abuse. Surrogate decision maker: Trey Maurice, spouse. Code status: Full code. Mod Sed Physical
--- NOTE | 2021-06-09 09:12 | P.PCNCC_ITS ---
Cardiac Cath Procedure Note Date of procedure:: 06/09/21 Performing physician:: Tal Jarrell MD Indication:: chest pain with elevation of troponin and decreased left ventricular function Brief clinical history:: this is a 71-year-old woman without previous cardiac history. She entered the hospital couple of days ago after having chest pain that began after a heated argument with a family member. She was found to have some pulmonary edema in the emergency room. Echocardiogram demonstrated left ventricular systolic dysfunction and troponin levels were slightly elevated. In this setting an angiogram was recommended. She has a contrast allergy And was pretreated with prednisone last night and this morning. Procedure Procedure performed:: coronary angiogram left ventriculogram Angio-Seal to right femoral artery Sedation/Medication given:: fentanyl 50 mg Versed 2 mg case start time 8:49 a.m. case end time 9:07 a.m. Access site:: right femoral artery Estimated blood loss:: 20 cc Procedure note:: patient was brought to the cardiac catheterization lab in the postabsorptive state where the right femoral triangle was prepared and draped in usual fashion. Anesthesia was provided with 1% lidocaine infiltrated locally. Using the modified Seldinger technique a 5 German sheath was placed into the right common femoral artery. After this left heart catheterization was carried out. I performed left coronary angiogram using a 5 German FL4 catheter. After this right coronary angiogram was performed using a 5 German JR4 catheter. The 5 German angled pigtail catheter was used to measure left-sided hemodynamics and injected LV g in the our AO projection. After this case was terminated. An angiogram was done of the femoral artery through the sheath after which an Angio-Seal device was deployed at the puncture site with a good hemostatic result. 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 Findings:: Hemodynamics: Central aortic pressure was 124/64 left ventricle 124/2 end-diastolic pressure 22. No gradient upon pullback across the aortic valve. Left ventricle: The LV is modestly enlarged the midportion to apical half of the LV is markedly hypodynamic the basal portion contracts well. Global ejection fraction of visually estimated to be about 30%. The left main coronary artery is widely patent the left anterior descending is a large caliber vessel which extends down to around the apex. The LAD and its are smooth and angiographically normal in appearance. Circumflex is a large caliber vessel giving rise to the marginal branches. The circumflex is smooth and angiographically normal in appearance. The right coronary artery is large in caliber and dominant to the posterior circulation. The right coronary artery is smooth and angiographically normal in appearance. Conclusion:: 1. Right coronary dominant circulation with no evidence of coronary artery disease. 2. Left ventricular systolic dysfunction with hypokinesis of the apical half of the LV a pattern typical of takotsubo stress cardiomyopathy. 3. Elevated left ventricular end-diastolic pressure Tal Jarrell MD [facility]
[2021-06-09 12:02] LABS: Glucose Point of Care 178 mg/dl (65-105)
--- NOTE | 2021-06-09 13:08 | P.CDI_ITS ---
CDI Query Clarification Request -on 06/08 draft progress note, CHF and Chest x-ray shows diffuse interstitial pattern consistent with pulmonary edema. BNP was 1230. Echo showing EF 25-30% with diastolic dysfunction and akinetic segments. Continue judicious IV diuresis with close monitoring of volume status and renal function. Wean O2 as tolerated has been documented -Four doses of Lasix 20mg IV have been given Please further clarify type and acuity of CHF: * Systolic *Acute * Diastolic *Chronic * Both systolic and diastolic *Acute on chronic * Unable to determine *Unable to determine
--- NOTE | 2021-06-09 14:06 | PM.DS ---
DS: Admitting Diagnosis Discharge Date 06/09/21 Admitting Diagnosis Chest pain DS: Discharge Diagnosis Discharge Diagnosis (1) Non-ST elevation myocardial infarction (NSTEMI): Code(s): I21.4 - Non-ST elevation (NSTEMI) myocardial infarction Status: Acute Assessment and Plan: Patient has no known history of cardiac disease. She states her symptoms came on after an emotional and intense argument with her daughter. EKG showing bilateral small Q-waves ST T wave changes. Repeat EKG showing ST T wave changes in the anterolateral and high lateral leads. Troponin peaked at 1.67. LHC on 06/09 showing right coronary dominant circulation with no evidence of coronary artery disease. Left ventricular systolic dysfunction with hypokinesis of the apical half of the LV that is a pattern typical of takotsubo stress cardiomyopathy. Elevated Troponin related to the Takotsubo stress cardiomyopathy (2) Congestive heart failure: Code(s): I50.9 - Heart failure, unspecified Status: Acute Assessment and Plan: Patient with acute systolic and diastolic CHF. Chest x-ray shows diffuse interstitial pattern consistent with pulmonary edema. BNP was 1230. Echo showing EF 25-30% with diastolic dysfunction and akinetic segments. She was started on IV Lasix with good diuresis and clinical recovering. She was changed to Spironolactone at discharge. Coreg added. We continued her lisinopril. (3) Takotsubo cardiomyopathy: Code(s): I51.81 - Takotsubo syndrome Status: Acute Assessment and Plan: As above (4) Acute respiratory failure with hypoxia: Code(s): J96.01 - Acute respiratory failure with hypoxia Status: Acute Assessment and Plan: Secondary to pulmonary edema. V/Q scan shows low probability for pulmonary embolism. ABG 7.36/40/123. Patient wore BiPAP early in her hospital course but able to be weaned off. Weaned off O2 as well. (5) Type 2 diabetes mellitus: Code(s): E11.9 - Type 2 diabetes mellitus without complications Status: Acute Assessment and Plan: A1c 6.2. Diet-controlled. Glucose remained well controlled. (6) Hypertension: Code(s): I10 - Essential (primary) hypertension Status: Acute Assessment and Plan: Patient's blood pressure was monitored closely and remained well controlled. (7) Hyperlipidemia: Code(s): E78.5 - Hyperlipidemia, unspecified Status: Acute Assessment and Plan: TG 107, TC 187, LDL 111 and HDL 67. We continued ezetimibe. Lipitor was added but she states she can not tolerate this. Coronaries showing no significant plaquing so will stop Lipitor. (8) Elevated LFTs: Code(s): R79.89 - Other specified abnormal findings of blood chemistry Status: Acute Assessment and Plan: AST/ALT mildly elevated. [place] related to hepatic congestion. Repeat levels better. DS: Summary Hospital Course Reason for hospitalization: 71yo female with DM and HTN here for chest pain. Please see H&P for details. Hospital Course: Please see above for details of hospital course Status at Discharge Cognitive/behavioral status at discharge: Stable Time Spent with Patient Time attestation: Total time spent providing and/or coordinating discharge services: 35 minutes Time spent: Greater than 30 minutes Exam Narrative: AF 97.6 124/70 94 16 95% ra Gen - NARD Chest - CTA bilaterally, nml RR CV - RRR S1/S2 Abd - Soft, NT/ND, Positive BS Ext - No pedal edema. Right femoral dressing clean and dry. no hematoma noted Psych - Nml mood and affect Skin - Warm and dry DS: Data Data Completed and Pending Labs on day of discharge: Labs from last 24 hours 06/09/21 06/09/21 06/09/21 11:44 07:47 04:57 WBC RBC Hgb Hct MCV MCH MCHC RDW Plt Count MPV APTT 112.5 H Sodium Potassium Chloride Carbon Dioxide Anion Gap
== END 2021-06-09 16:15 | disposition home or self-care (01) | DRG 286 ==
LOC: ANHED 16:43 → ANHIMU 06-08 12:53
PROVIDERS: Emergency Medicine; Nurse Practitioner; Physician Assistant; Specialist; Admitting Provider Hospitalist; Emergency Provider Emergency Medicine; Visit Provider Internal Medicine
PROC: 4A023N7 Measurement of Cardiac Sampling and Pressure, Left Heart, Percutaneous Approach (ICD-10-PCS; CPT 93452; principal; 2021-06-09 08:30)
PROC: 4A023N7 Measurement of Cardiac Sampling and Pressure, Left Heart, Percutaneous Approach (ICD-10-PCS; 2021-06-09 08:30)
DX: I51.81 Takotsubo syndrome (principal); I50.41 Acute combined systolic (congestive) and diastolic (congestive) heart failure; J96.01 Acute respiratory failure with hypoxia; I11.0 Hypertensive heart disease with heart failure; E11.9 Type 2 diabetes mellitus without complications; E78.5 Hyperlipidemia, unspecified; K76.1 Chronic passive congestion of liver; K21.9 Gastro-esophageal reflux disease without esophagitis; Z20.822 Contact with and (suspected) exposure to COVID-19; M19.90 Unspecified osteoarthritis, unspecified site; F41.9 Anxiety disorder, unspecified; Z90.710 Acquired absence of both cervix and uterus
CPT/HCPCS: 36415; 36600; 71046; 78580; 80053; 80061; 82375; 82805; 82948; 83036; 83050; 83690; 83735; 83880; 84443; 84484; 85025; 85027; 85380; 85610; 85730; 93005; 93458; 96365; 96375; 99285; A9270; A9540; C1760; C1887; C1894; C8929; C9803; G0269; J1200; J1644; J1940; J2250; J2270; J2405; J2930; J3010; J3475; J7030; J7040; J7512; Q9957; U0003; U0005

== ENCOUNTER → 2022-12-20 08:14 | Outpatient (CLI) | payer MEDICARE, SELFPAY ==
--- NOTE | ~2022-12-20 | XR_ITS ---
XR lumbar spine 6V w bending DATE: 12/20/2022 08:31 INDICATION: Right low back pain. No injury. TECHNIQUE: Flexion and extension lateral views. AP, lateral, bilateral oblique views and coned latera l lumbosacral view COMPARISON: None FINDINGS: The lumbar vertebrae are normally aligned. No fracture or bone destruction or spondylolisth esis or spondylolisthesis is detected. There is no instability on flexion or extension. Included lower thoracic and lumbar pedicles are intact. There is multilevel moderate degenerative disease. The sacroiliac joints are intact. 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
--- NOTE | ~2022-12-20 | MR_ITS ---
MRI of the lumbar spine Clinical History: Back pain Technique: Axial T2-weighted images, and sagittal T1-weighted, T2-weighted, and and T2 fat-sat images were acquired. Findings: There is no fracture or subluxation of the lumbar spine. Vertebral bodies maintain normal h eight and alignment. No suspicious bone marrow signal abnormality identified. At L1-L2, there is mild degenerative disc 9. There is minimal disc bulge and mild facet arthropathy. No central canal stenosis or neural foraminal narrowing. At L2-L3, there is no disc bulge or herniation. There is mild facet arthropathy. No central canal nikolas nosis or neural foraminal narrowing. At L3-L4, there is no significant disc bulge or herniation. There is mild facet arthropathy. No centr al canal stenosis or neural foraminal narrowing. At L4-L5, there is minimal disc bulge and moderate facet arthropathy. No central canal stenosis or ne ural foraminal narrowing. At L5-S1, there is moderate degenerative disc narrowing. There is diffuse disc bulge and mild to mode rate facet arthropathy. No central canal stenosis. There is mild bilateral neural foraminal narrowing , left worse than right. Paravertebral soft tissues are unremarkable. Impression: Mild degenerative change, as above. Reviewed, dictated and finalized at location M. Impression: Mild degenerative change, as above.
== END ==
PROVIDERS: Visit Provider Anesthesiology Pain Medicine
DX: M54.9 Dorsalgia, unspecified (principal); M51.36 Other intervertebral disc degeneration, lumbar region
CPT/HCPCS: 72114; 72148

== ENCOUNTER 2023-03-14 07:56 | Day surgery (SDC) | payer MEDICARE, SELFPAY ==
[2023-03-10 08:51] VITALS: BMI 34.0
--- NOTE | ~2023-03-14 | XR_ITS ---
EXAMINATION: XR fluoroscopy no charge INDICATION: Right L1-L3 peripheral nerve block TECHNIQUE: Three intraoperative fluoroscopic images are submitted for review. Total fluoroscopic time was 16.4 seconds COMPARISON: None available FINDINGS: Fluoroscopic images demonstrate needles at the peripheral margins of three lumbar vertebrae , presumably L1, L2, and L3. IMPRESSION: 1. Please refer to procedure note for full details. Reviewed, dictated and finalized at location F. LE SELECTOR
--- NOTE | 2023-03-14 07:34 | PM.HPGS ---
History of Present Illness History of Present Illness Consent: Risks, benefits, and alternatives have been discussed and questions answered. Patient agrees to proceed with procedure. Chief complaint: Spondylosis Thoracolumbar Region Narrative: Marianne Maurice is a 72 year old female With chronic, recalcitrant and disabling thoracolumbar back pain unresponsive to more conservative measures. Review of Systems Review of Systems: All systems reviewed & are unremarkable except as noted in HPI and below PMFSH Past Medical History Medical History (Updated 02/07/23 @ 11:46 by Roque Rivera MD) Gastroesophageal reflux disease Hyperlipidemia Hypertension Migraine Osteoarthritis of left shoulder Tendinosis of left rotator cuff Type 2 diabetes mellitus Surgical History Surgical History History of ankle surgery Left x2. History of section History of hysterectomy History of tonsillectomy Family History Family History Other Hypertension Social History Social History Social History: Resides in [place] with her . Lifelong nonsmoker. No alcohol abuse. Surrogate decision maker: Trey Maurice, spouse. Code status: Full code. Smoking status: Former smoker Substance use type: does not use Living arrangements: with family Spiritual care concerns: No Meds Home Medications and Allergies Home Medications Medication Instructions Recorded Confirmed Type lisinopril 40 mg tablet 40 mg PO DAILY 05/08/20 03/10/23 History omeprazole 40 mg capsule,delayed 40 mg PO DAILY 05/08/20 03/10/23 History release ezetimibe 10 mg tablet 10 mg PO DAILY 06/07/21 03/10/23 History aspirin 81 mg capsule 81 mg PO DAILY 03/10/23 03/10/23 History chlorthalidone 25 mg tablet 25 mg PO DIRECTED 03/10/23 03/10/23 History multivitamin 1 tablet PO DAILY 03/10/23 03/10/23 History Allergies Allergy/AdvReac Type Severity Reaction Status Date / Time iodine Allergy Unknown Anaphylactic Verified 03/10/23 08:39 Shock iohexol Allergy Anaphylactic Verified 03/10/23 08:39 [From contrast - CT, X-RAY] Shock Penicillins AdvReac Unknown Unknown Verified 03/10/23 08:39 Exam Const: General: cooperative, healthy appearing, comfortable and no acute distress Nutritional Appearance: well nourished Orientation/consciousness: patient oriented x3 HENMT: Head: normal to inspection Face and sinus: normal facial exam Eyes: General: appearance normal, both eyes and all related structures Neck: Neck: normal visual inspection Chest: Chest palpation & inspection: normal inspection of the chest Resp: Effort & Inspection: normal respiratory effort Auscultation: clear to auscultation bilaterally Cardio: Rate: regular rate Rhythm: regular rhythm Peripheral pulses: Peripheral pulses 2+ throughout GI: Inspection: normal to inspection Back/Spine/Pelvis: Back: no CVA tenderness Skin: General skin exam: normal color and no rashes or lesions noted Neuro: General: patient oriented x3 Cranial nerves: Yes CN's II-XII intact bilaterally Cognition (Neuro): normal cognition Speech: normal speech Extrem: General: normal to inspection Psych: Appearance: grossly normal Mental Status: mental status grossly normal Assessment and Plan Assessment and plan (1) Other spondylosis, thoracolumbar region: Code(s): M47.895 - Other spondylosis, thoracolumbar region Status: Acute Assessment and Plan: Proceed as planned with bilateral L1, L2, L3 medial branch blocks Under fluoroscopic guidance today with progression to confirmatory blocks and thermal RF ablation as indicated by response. (2) Chronic pain: Code(s): G89.29 - Other chronic pain Status: Acute (3) Pain in thoracic spine: Code(s): M54.6 - Bubba
--- NOTE | 2023-03-14 07:37 | WPDHPUPDATE1 ---
History and Physical Update Update Date/Time: 03/14/23 07:37 History and Physical has been reviewed, including an updated exam of the patient. There are NO changes in the patient's condition. Risks, benefits, and alternatives have been discussed and questions answered. Patient agrees to proceed with procedure.
[2023-03-14 08:19] VITALS: BP 146/77; PULSE 78; RESP 16; TEMP 36.4; O2SAT 97; BMI 34.3
[2023-03-14 09:45] VITALS: BP 185/82; PULSE 91; RESP 17; O2SAT 97
[2023-03-14 09:50] VITALS: BP 174/86; PULSE 120; RESP 22; O2SAT 97
[2023-03-14] MEDS: BUPivacaine HCL 0.5% 10 ML AMP INFILTRATE (09:52)
--- NOTE | 2023-03-14 09:54 | W.PM.PROC2 ---
Procedure Note - Detailed Date of Procedure 03/14/23 Pre-op Diagnosis Spondylosis Thoracolumbar Region, Dorsalgia Post-op Diagnosis Same Procedure Performed right L1, L2, L3 medial branch nerve block (#1 ) addressing the right L2-3, L3-4 facet joints under fluoroscopic guidance with contrast control. Surgeon Roque Rivera MD Anesthesia Local Description of Procedure INFORMED CONSENT: Risks, benefits and alternatives to the procedure were discussed in detail with the patient who expressed explicit understanding and consent to proceed. Patient was informed verbally and in written form regarding the risks associated with the procedure including the low risk of serious infection, bleeding/bruising, allergic reaction, nerve or organ injury, paralysis, procedural site pain or discomfort, worsening pain and/or mobility, failure to treat and/or disfigurement. The patient expressed explicit understanding and consent to proceed. All materials required for the procedure were available prior to procedure start. Site and side were marked prior to procedure and confirmed in the presence of the patient. PROCEDURE IN DETAIL: The patient was brought to the procedural suite and placed in the prone position. Patient was made comfortable with use of pillows under the head/chest, hips and ankles. Skin overlying the injection site on the affected side(s) was prepared broadly with ChloraPrep applicator and draped in a sterile manner. Aseptic technique was used throughout. The endplates of the vertebral bodies at the site(s) of interest were aligned in the AP view. Ipsilateral oblique angulation was utilized to optimize visualization of the intersection between the superior articulating process and transverse process at each target site. Local anesthesia was established by infiltration with approximately 5 mL of 1% lidocaine via a 1-1/2 inch 27-gauge needle. A 25-gauge 3.5 inch Quincke spinal needle was advanced until the needle tip contacted periosteum at the target site, right L1. Lateral view was utilized to confirm the appropriate placement of the needle tip just anterior to the facet line and superior to the pedicle. In the Lateral view, 0.25 mL of Dotarem contrast medium was injected after negative aspiration for CSF, blood or other bodily fluid, showing appropriate extra-articular spread of contrast without evidence of intravascular, foraminal or intrathecal placement. A 0.5 mL solution of 0.5% PF bupivacaine was injected after negative repeat aspiration. Appropriate spread of the injectate was confirmed with washout of previously injected contrast. No parasthesias were elicited. Needle was removed completely intact without difficulty. The same exact procedure was repeated for all remaining levels on the ipsilateral side, right L2, L3 medial branches, modified as necessary to accommodate for the new target location with identical findings and results and no evidence of complication. Images were saved and documented in the patient chart. Patient's skin was cleaned and sterile bandage applied. The patient tolerated the procedure well. The patient was transported to the recovery area in stable condition where they were observed for an appropriate amount of time prior to discharge, without evidence of complication. Patient was instructed on the appropriate completion of a pain diary over the next 12-24 hours. The patient was instructed to avoid excessive activity for the next 48 hours, including climbing and frequent use of stairs. Showers only for 48 hours. They were instructed not to drive or operate heavy machinery for 24 hours. They are to monitor for severe headaches, fevers, chills, night sweats, erythema/swelling at the site or any other signs of infection, bleeding/bruising, bowel or bladder changes as well as new pain, weakness or numbness in the upper or lower extremity. Should they notice these changes, they are instructed to call our office immediately or report directl
[2023-03-14] MEDS: LIDOCAINE HCL 1% PF INJ 5 ML VIAL 6 ML XX (09:58)
[2023-03-14 09:59] VITALS: BP 151/85; PULSE 122; RESP 20; O2SAT 99
[2023-03-14 10:20] VITALS: BP 117/69; PULSE 116; RESP 20; O2SAT 95
--- NOTE | 2023-03-14 10:28 | SUR.PHASEII ---
0959; PT ARRIVED FROM OR IN W/C C/O MIDSTERNAL CHEST PRESSURE AT 5-6/10. PT ASSISTED ONTO STRETCHER. DENIES PAIN TO SURGICAL SITE. MAEW. MONITORS APPLIED. HR 122. O2 2L NC APPLIED. PT STATES IM VERY ANXIOUS 1001; SPOUSE AT BEDSIDE NOW. DR YANG AT BEDSIDE. EKG ORDERED AND DONE. 1005; EKG STRIP GIVEN TO DR YANG. 1007; LIGHTS IN ROOM DIMMED. PT REMAINS ON MONITORS INCLUDING HEART MONITOR. PT DRINKING A FEW SIPS OF WATER. STATES CP UNCHANGED AT 5-6/10 AND MIDSTERNAL. 1015; PT RESTING QUIETLY. SPOUSE AT BEDSIDE. 1023; DR YANG BACK AT BEDSIDE. PT STATES CP UNCHANGED. BP HAS COME DOWN SOME. HR 117-[address] YANG WANTS PT TO GO TO ED PER EMS. PT AGREES.
--- NOTE | 2023-03-14 10:43 | SUR.PHASEII ---
1031; DR YANG CALLED [facility] AND SPOKE WITH THE RN SOFTWARE IMPLEMENTATION PROJECT MANAGER, SETH, AND GAVE A REPORT.
--- NOTE | 2023-03-14 11:03 | SUR.PHASEII ---
1035; CALLED REPORT TO [facility] IN [place] [facility]. 1044; EMS HERE. REPORT GIVEN, PT TO ED. SPOUSE WITH PT. PAPER CHART GIVEN TO EMS.
== END 2023-03-14 10:45 | disposition home or self-care (01) ==
LOC: ASC 07:58
PROVIDERS: Visit Provider Anesthesiology Pain Medicine
PROC: (CPT 64493; principal; 2023-03-14 09:00)
DX: M47.816 Spondylosis without myelopathy or radiculopathy, lumbar region (principal); M54.59 Other low back pain
CPT/HCPCS: 64493; 64494; 64495; 99199

== ENCOUNTER 2023-03-14 11:27 | Inpatient (IN) | payer MEDICARE, SELFPAY ==
[2023-03-14] VITALS (18 sets, daily range): BP systolic 86–128; BP diastolic 51–76; PULSE 93–123; RESP 15–24; TEMP 36.4–36.6; O2SAT 89–99; BMI 34.3; BMI 33.7
--- NOTE | ~2023-03-14 | XR_ITS ---
XR chest 2V 03/14/2023 12:07 Indication: Chest pain. Procedure: 2 view chest Comparison: 06/07/2021 Findings: Heart size normal. No focal air space disease, pulmonary edema, pleural effusion or suspect ed pneumothorax. Impression: 1: No acute cardiopulmonary disease. Reviewed, dictated and finalized at [facility] L. OR ELECTRICAL ENGINEER Impression: 1: No acute cardiopulmonary disease.
--- NOTE | ~2023-03-14 | NM_ITS ---
NM lung vent and perfusion INDICATION: Tachycardia. Hypoxia. TECHNIQUE: The patient inhaled aerosolized 8.9 mCi xenon-133. Following ventilation scan, 5.2 mCi Tc 99m MAA was injected intravenously for perfusion images. Multiple images were then acquired. COMPARISON: Chest x-ray dated 03/14/2023 FINDINGS: The comparison chest radiograph demonstrates no pulmonary infiltrates or pleural fluid. Th e perfusion scan is normal. The aerosol in images show uniform deposition throughout the lungs. Ther e is mild retention of tracer on ventilation washout images. IMPRESSION: 1: Normal perfusion images. Reviewed, dictated and finalized at location L. DRIVING SUPERVISOR IMPRESSION: 1: Normal perfusion images.
--- NOTE | 2023-03-14 11:34 | ECG_ITS ---
Measurements Intervals [place] Rate: 119 P: [place]: 0 QRS: 10 QRSD: 103 T: 68 QT: 334 QTc: 471 Interpretive Statements SINUS TACHYCARDIA BORDERLINE T WAVE ABNORMALITY- HIGH LATERAL LEADS BASELINE WANDER- AVL ABNORMAL ECG COMPARED TO ECG 06/07/2021 17:51:00 NO SIGNIFICANT CHANGES Electronically Signed On 03-14-2023 13:48:18 REGISTERED CLINICAL DIETITIAN by Sandro Savage D.O.
[2023-03-14 11:50] LABS: Basophils Absolute Auto 0.1 K/mm3 (0.0-0.1); Basophils Percent Auto 0.7 % (0.2-1.2); Eosinophils Absolute Auto 0.1 K/mm3 (0-0.3); Eosinophils Percent Auto 1.2 % (0-4.4); Hemoglobin 13.6 g/dL (12.0-15.0); Immature Granulocyte Absolute 0.03 K/mm3 (0.00-0.031); Immature Granulocyte Percent A 0.4 % (0-0.5); Lymphocytes Absolute Auto 1.66 K/mm3 (0.9-3.2); Lymphocytes Percent Auto 21.7 % (18.3-44.2); Mean Corpuscular HGB Conc 32.4 g/dl (32-36); Mean Corpuscular Hemoglobin 30.2 pg (26-34); Mean Corpuscular Volume 93.3 fl (80-100); Mean Platelet Volume 9.7 fl (7.4-10.4); Monocytes Absolute Auto 0.4 K/mm3 (0.1-0.6); Monocytes Percent Auto 5.1 % (2.6-8.5); Neutrophils Absolute Auto 5.4 K/mm3 (1.3-6.7); Neutrophils Percent Auto 70.9 % (45.5-73.1); Platelet Count Result 293 k/mm3 (150-375); Red Cell Distribution Width 13.2 % (11.5-14.5); White Blood Count 7.7 K/mm3 (4.5-10.0)
[2023-03-14 12:01] LABS: Alanine Aminotransferase 32 U/L (6-35); Albumin Level 4.3 g/dL (3.5-5.1); Alkaline Phosphatase 76 U/L (38-126); Anion Gap 9 mmol/L (8-16); Aspartate Amino Transferase 24 U/L (14-36); Bilirubin,Total 0.5 mg/dL (0.2-1.3); Blood Urea Nitrogen 21 mg/dL (7-17); Calcium 9.7 mg/dL (8.4-10.2); Carbon Dioxide 26 mmol/L (22-30); Chloride 103 mmol/L (98-107); Estimated CRCL calculation 53 ml/min; Estimated Glomerular Filt Rate > 60; Glucose 141 mg/dL (65-110); Lipase 39 U/L (23-300); Potassium 3.7 mmol/L (3.4-5.0); Prothrombin Time 13.1 Seconds (11.1-14.7); Sodium 138 mmol/L (137-145)
[2023-03-14 12:02] LABS: Partial Thromboplastin Time 27.6 SECONDS (22.3-36.8)
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
[2023-03-14 12:18] LABS: Troponin I 0.156 ng/mL (0.000-0.034)
[2023-03-14] MEDS: dilTIAZem HCl INJ 25 MG/5 ML VIAL 20 MG IV PUSH (12:58)
[2023-03-14 15:36] LABS: Troponin I 0.735 ng/mL (0.000-0.034)
--- NOTE | 2023-03-14 15:37 | ECG_ITS ---
Measurements Intervals [place] Rate: 113 P: 34 [place]: 158 QRS: 0 QRSD: 100 T: 63 QT: 335 QTc: 461 Interpretive Statements SINUS TACHYCARDIA BORDERLINE R WAVE PROGRESSION, ANTERIOR LEADS HIGH LATERAL INFARCT, AGE INDETERMINATE ABNORMAL ECG COMPARED TO ECG 03/14/2023 11:34:11 NO SIGNIFICANT CHANGES Electronically Signed On 03-14-2023 16:52:41 SPEECH LANG PATH by Sandro Savage D.O.
[2023-03-14] MEDS: dilTIAZem HCl INJ 25 MG/5 ML VIAL IV PUSH (15:47)
[2023-03-14 15:57] LABS: NT Pro B Type Natriuretic Pept 262 pg/mL (19.9-100)
[2023-03-14 16:54] LABS: D Dimer 0.46 ug/mL (<0.48)
--- NOTE | 2023-03-14 17:37 | ADMGEN ---
This patient, Marianne Maurice, was admitted to IMU Room 205-02. Patient/family oriented to hospital policies and general routines including ID bracelet, bed and alarms, visiting hours, pain management, procedures, bathroom and other care routines, personal items, smoking policy, room service/diet, and visiting hours. Information on how to activate the Rapid Response Team has been discussed. Patient/Family are encouraged to report perceived risks to care and to ask questions if they do not understand what they are told or what they should do.
[2023-03-14] MEDS: dilTIAZem HCL 30 MG TABLET PO (17:43)
--- NOTE | 2023-03-14 20:27 | PM.IMHP ---
H&P: HPI History of Present Illness Date/Time: 03/14/23 20:27 Chief Complaint: Chest pain. Narrative: This is a 72-year-old female with past medical history significant for takotsubo cardiomyopathy, hypertension, diabetes, gastroesophageal reflux disease, dorsalgia, chronic back pain. Patient presents today from pain management office where she got nerve block injection. In emergency room found to have atrial flutter an elevated troponin. Patient states that she has been very anxious in the last few days having vivid dreams and nightmares. Patient denies any nausea, vomiting, syncope, near syncope, lightheadedness, dizziness, cough, sputum production, fevers, rigors, chills. Patient was ruled out for acute pulmonary embolism with V/Q scan. A chest x-ray did not show acute abnormalities. Troponins x4 are 0.1 for/0.753/0.133/0.155 XR chest 2V 03/14/2023 12:07 Indication: Chest pain. Procedure: 2 view chest Comparison: 06/07/2021 Findings: Heart size normal. No focal air space disease, pulmonary edema, pleural effusion or suspected pneumothorax. Impression: 1: No acute cardiopulmonary disease. NM lung vent and perfusion INDICATION: Tachycardia. Hypoxia. TECHNIQUE: The patient inhaled aerosolized 8.9 mCi xenon-133.? Following ventilation scan, 5.2 mCi Tc 99m MAA was injected intravenously for perfusion images.? Multiple images were then acquired. COMPARISON: Chest x-ray dated 03/14/2023 FINDINGS: The comparison chest radiograph demonstrates no pulmonary infiltrates or pleural fluid.? The perfusion scan is normal.? The aerosol in images show uniform deposition throughout the lungs. There is mild retention of tracer on ventilation washout images. IMPRESSION: 1: Normal perfusion images. Review of Systems Review of Systems: Chest pain, palpitations, shortness of breath. Constitutional: Constitutional: Denies chills, Denies fatigue, Denies fever(s), Denies malaise, Denies night sweats, Denies poor appetite and Denies weakness Eyes: Eyes: Denies change in vision ENT: Denies dysphagia, Denies vertigo, Denies dizziness and Denies odynophagia Cardiovascular: Cardiovascular: Reports chest pain, Reports rapid heart rate, Denies leg edema, Reports palpitations and Reports dyspnea Respiratory: Respiratory: Denies cough, Denies excessive phlegm production and Denies pain on inspiration Gastrointestinal: Gastrointestinal: Denies abdominal pain, Denies dyspepsia, Denies heartburn, Denies diarrhea, Denies nausea and Denies vomiting Genitourinary: Genitourinary: Denies dysuria Musculoskeletal: Musculoskeletal: Reports back pain Integumentary/Breasts: Skin/Breast: Denies rash Neurologic: Denies focal weakness and Denies Sensory deficit (Neuro) Psychiatric: Psychiatric: Reports no additional psychiatric complaints and Reports as per HPI Endocrine: Endocrine: Denies cold intolerance, Denies flushing, Denies heat intolerance, Denies polyphagia, Denies polydipsia and Denies palpitations Hematologic/Lymphatic: Hematologic/Lymphatic: Reports no additional hematologic/lymphatic complaints and Reports as per HPI Allergic/Immunologic: Allergic/Immunologic: Reports no additional allergic/immunologic complaints and Reports as per HPI PMFSH Past Medical History Medical History (Updated 03/15/23 @ 00:30 by Jong Ramos MD) Gastroesophageal reflux disease Hyperlipidemia Hypertension Migraine Osteoarthritis of left shoulder Tendinosis of left rotator cuff Type 2 diabetes mellitus Surgical History Surgical History History of ankle surgery Left x2. History of section History of hysterectomy History of tonsillectomy Family History Family History (Updated 03/14/23 @ 18:11 by Belle Billings RN) Father Lung cancer Mother Sudden Alcohol abuse Sibling Heart disease Other Hypertension Social History Social History
[2023-03-15] VITALS (18 sets, daily range): BP systolic 95–112; BP diastolic 45–72; PULSE 78–107; RESP 16–19; TEMP 36.3–36.8; O2SAT 92–99
--- NOTE | 2023-03-15 | ECHO_ITS ---
Patient Info Name: Marianne Maurice Age: 72 years : 1950 Gender: Female Ht: 60 in Wt: 173 lbs BSA: 1.86 m2 HR: 95 bpm BP: 106 / 58 mmHg Heart Rhythm: Tachycardia Technical Quality: Good Exam Date: 03/15/2023 11:18 AM Exam Location: Echo Lab Patient Status: Inpatient Admit Date: 03/14/2023 Staff Ordering Physician: Jong Ramos MD Counsellors: Patricia Kirkpatrick RDCS Attending Provider: René oYu MD Referring Physician: Rachel ZAMAN; Exam Type: CA echo doppler color flow Study Info Indications - A-flutter Complete two-dimensional, color flow and Doppler transthoracic echocardiogram is performed. Summary 1. Complete two-dimensional, color flow and Doppler transthoracic echocardiogram is performed. 2. The apex, mid anteroseptal, and mid inferolateral wall are akinetic. 3. The mid inferior wall, mid anterior wall, mid inferoseptal, and mid anterolateral wall are hypokinetic. 4. Left ventricular chamber dimension is mildly enlarged. 5. Left ventricular systolic function is severely reduced, estimated at 30-35%. 6. There is mildly increased left ventricular wall thickness. 7. The left ventricular diastolic function is grade I diastolic dysfunction. 8. Left atrial chamber dimension is mildly enlarged. 9. There is mild aortic valve regurgitation. 10. There is mild to moderate mitral valve regurgitation. 11. There is mild tricuspid valve regurgitation. 12. Moderate pulmonary hypertension, estimated pulmonary arterial systolic pressure is 49 mmHg. 13. There is mild pulmonic regurgitation. Left Ventricle Left ventricular chamber dimension is mildly enlarged. Left ventricular systolic function is severely reduced, estimated at 30-35%. There is mildly increased left ventricular wall thickness. The left ventricular diastolic function is grade I diastolic dysfunction. The apex, mid anteroseptal, and mid inferolateral wall are akinetic. The mid inferior wall, mid anterior wall, mid inferoseptal, and mid anterolateral wall are hypokinetic. All other bragg appear normal. Right Ventricle Right ventricular chamber dimension is normal. Right ventricular systolic function is normal. Left Atria Left atrial chamber dimension is mildly enlarged. Right Atria Right atrial chamber dimension is normal. Atrial Septum Intact interatrial septum visualized by color flow imaging. Aortic Valve The aortic valve is trileaflet. There is mild aortic valve sclerosis. There is no aortic valve stenosis. There is mild aortic valve regurgitation. Pulmonic Valve The pulmonic valve is normal. There is no pulmonic valve stenosis. There is mild pulmonic regurgitation. Mitral Valve The mitral valve has thickened leaflets. There is no mitral valve stenosis. There is mild to moderate mitral valve regurgitation. Tricuspid Valve The tricuspid valve leaflets are normal. There is no significant tricuspid valve stenosis. There is mild tricuspid valve regurgitation. Moderate pulmonary hypertension, estimated pulmonary arterial systolic pressure is 49 mmHg. Pericardium/Pleural The pericardium appears normal. There is no pericardial effusion. Inferior Vena Cava Normal inferior vena cava with >50% collapse upon inspiration consistent with normal right atrial pressure, 10 mmHg. Aorta The aortic root size at the sinus of Valsalva is normal. Left Ventricular Outflow Tract Name Value Normal
--- NOTE | 2023-03-15 00:17 | ECG_ITS ---
Measurements Intervals [place] Rate: 99 P: 30 WI: 157 QRS: 37 QRSD: 102 T: 83 QT: 376 QTc: 483 Interpretive Statements SINUS RHYTHM LOW QRS VOLTAGE IN LIMB LEADS BORDERLINE T WAVE ABNORMALITY- ANT/HIGH LAT LEADS BASELINE ARTIFACT- I, II, III BORDERLINE ECG COMPARED TO ECG 03/14/2023 15:45:59 SINUS RHYTHM NOW PRESENT Electronically Signed On 03-15-2023 6:57:16 LEATHER TANNER by Sandro Savage D.O.
[2023-03-15] MEDS: ACETAMINOPHEN 500 MG TABLET 1000 MG PO (01:01)
[2023-03-15] MEDS: lisinopriL 20 MG TABLET 40 MG PO (08:35)
[2023-03-15] MEDS: ASPIRIN 81 MG ENTERIC TABLET PO (08:35)
[2023-03-15] MEDS: CHLORTHALIDONE 12.5 MG TAB PO (08:35)
[2023-03-15] MEDS: PANTOPRAZOLE 40 MG TABLET PO ×2 (08:37→20:25)
[2023-03-15 08:51] LABS: Hematocrit 41.5 % (37.0-47.0); Hemoglobin 13.7 g/dL (12.0-15.0); Mean Corpuscular Hemoglobin 30.8 pg (26-34); Mean Corpuscular Volume 93.3 fl (80-100); Mean Platelet Volume 9.9 fl (7.4-10.4); Platelet Count Result 287 k/mm3 (150-375); Red Blood Count 4.45 M/mm3 (4.2-5.4); Red Cell Distribution Width 13.2 % (11.5-14.5); White Blood Count 11.4 K/mm3 (4.5-10.0)
[2023-03-15 09:07] LABS: Alanine Aminotransferase 30 U/L (6-35); Albumin Level 4.2 g/dL (3.5-5.1); Alkaline Phosphatase 68 U/L (38-126); Anion Gap 11 mmol/L (8-16); Aspartate Amino Transferase 31 U/L (14-36); Bilirubin,Total 0.7 mg/dL (0.2-1.3); Blood Urea Nitrogen 20 mg/dL (7-17); Calcium 9.5 mg/dL (8.4-10.2); Carbon Dioxide 25 mmol/L (22-30); Chloride 104 mmol/L (98-107); Estimated CRCL calculation 59 ml/min; Estimated Glomerular Filt Rate > 60; Glucose 137 mg/dL (65-110); Potassium 3.8 mmol/L (3.4-5.0); Sodium 140 mmol/L (137-145)
--- NOTE | 2023-03-15 12:47 | PM.CNCAR ---
Assessment and Plan Assessment and plan (1) Atrial flutter: Code(s): I48.92 - Unspecified atrial flutter Status: Acute Assessment and Plan: She does not have atrial flutter. She has sinus tachycardia related to extreme anxiety and stress reaction (2) Takotsubo cardiomyopathy: Code(s): I51.81 - Takotsubo syndrome Status: Acute Assessment and Plan: She has history of takotsubo cardiomyopathy last year. She has had 2 normal coronary angiograms within the past 1-2 years. She was very anxious yesterday and her symptoms likely represent another episode of takotsubo or even what could be considered variant angina. Will add carvedilol 3.125 mg p.o. b.i.d.. Continue lisinopril. 2D echocardiogram is ordered and will be reviewed. Discontinue diltiazem completely. (3) Non-ST elevation myocardial infarction (NSTEMI): Code(s): I21.4 - Non-ST elevation (NSTEMI) myocardial infarction Status: Acute Assessment and Plan: Continue aspirin and other meds as above. Not related to acute plaque rupture (4) Hypertension associated with diabetes: Code(s): E11.59 - Type 2 diabetes mellitus with other circulatory complications; I15.2 - Hypertension secondary to endocrine disorders Status: Acute Assessment and Plan: Recent baseline hypertension. Her blood pressure is currently well controlled and if anything low (5) Hyperlipidemia associated with type 2 diabetes mellitus: Code(s): E11.69 - Type 2 diabetes mellitus with other specified complication; E78.5 - Hyperlipidemia, unspecified Status: Acute Assessment and Plan: Onset History of Present Illness History of Present Illness Consult date/time: 03/15/23 12:47 Requesting physician: Nory Capellan MD Consult reason: Other (Atrial flutter) Reason For Visit: new onset aflutter;elevated troponin Narrative: Date of service 03/15/2023 Reason for consultation: Atrial flutter Requesting provider: Dr. Capellan History patient is a 72-year-old female who has a history of takotsubo cardiomyopathy. She has had 2 coronary angiograms performed in the past year and a half that does not show significant coronary disease. She has extreme anxiety and was admitted to this hospital last year and underwent a coronary angiogram. She had an ejection fraction of 25-30% with wall motion abnormalities consistent with takotsubo cardiomyopathy. She follows with Dr. ALICEA at [facility]. She in up having another stress test and other catheterization performed this year. She had been doing okay up until yesterday. She was having some anxiety about a procedure that was being performed as an outpatient. She is seeing Dr. Rivera for a spinal nerve block injection. Near the end of the procedure she became very anxious nervous became diaphoretic and felt her heart pounding. She had severe chest pain at that point which persisted for the next 12-16 hours. She describes as shortness and tightness. She was not short of breath. She had no recent exertional symptoms. No syncope, presyncope, paroxysmal nocturnal dyspnea, orthopnea, edema. Initial EKG showed sinus tachycardia. There was a follow-up EKG that the computer read as being atrial flutter and therefore we were consulted for atrial flutter. This EKG clearly shows atrial mechanism and sinus tachycardia. Patient no longer has any pain. Her troponins were elevated in a did rise to a level of 1.55. Review of Systems Review of Systems: All systems reviewed & are unremarkable except as noted in HPI and below Constitutional: Constitutional: Denies body ache(s) Eyes: Eyes: Denies blurry vision ENT: Reports Normal hearing present Cardiovascular: Cardiovascular: Reports chest pain Respiratory: Respiratory: Denies hemoptysis Gastrointestinal: Gastrointestinal: Denies abdominal pain Genitourinary: Genitourinary: Denies hematuria Musculoskeletal: Musculoskeletal: Reports back pain
--- NOTE | 2023-03-15 15:25 | PM.IMPN ---
Progress Note: A&P Assessment and Plan (1) Atrial flutter: Code(s): I48.92 - Unspecified atrial flutter Status: Acute Assessment and Plan: Patient presents to the ED due to having chest tightness while getting back injection for chronic back pain. She was seen in the ED and was thought to of had a flutter With elevated troponin. Cardiology consulted. Cardiology does not believe that patient has a flutter but rather sinus tachycardia related to anxiety. Echocardiogram EF of 30-35%, grade 1 diastolic dysfunction, mild valvular disease and moderate pulmonary hypertension pressure of 44 mm per mercury. Improved from EF of 20-25% 1 year ago. Continue to monitor (2) Non-ST elevation myocardial infarction (NSTEMI): Code(s): I21.4 - Non-ST elevation (NSTEMI) myocardial infarction Status: Acute Assessment and Plan: Cardiology recommending continuing aspirin. No other workup needed at this time. (3) Acute respiratory failure with hypoxia: Code(s): J96.01 - Acute respiratory failure with hypoxia Status: Acute Assessment and Plan: Currently on supplemental oxygen by nasal cannula (4) Takotsubo cardiomyopathy: Code(s): I51.81 - Takotsubo syndrome Status: Acute Assessment and Plan: Patient with history of Takotsubo's cardiomyopathy. History of 2 coronary angiograms in the past 1-2 years. Cardiology recommending adding carvedilol 3.125 p.o. b.i.d.. Continue lisinopril. Discontinue chlorthalidone. Due to EF of 30-35% cardiology recommending LifeVest. Hopeful this will be in by tomorrow. (5) Congestive heart failure: Code(s): I50.9 - Heart failure, unspecified Status: Acute Assessment and Plan: see above (6) Vertebrogenic low back pain: Code(s): M54.51 - Vertebrogenic low back pain Status: Acute Assessment and Plan: Status post nerve block (7) Chronic pain: Code(s): G89.29 - Other chronic pain Status: Acute Assessment and Plan: Follow-up in outpatient setting (8) Type 2 diabetes mellitus: Code(s): E11.9 - Type 2 diabetes mellitus without complications Status: Acute Assessment and Plan: Holding Ezetimibe Insulin Lispro sliding scale, Accu-checks qAc and HS Initiate hypoglycemic precautions Subjective Date/time seen: 03/15/23 15:25 Interval history: patient feeling much better today. She states that she believes a lot of her problems are related to anxiety. She has plan to follow-up with her primary care in order to help get her anxiety under control. She denies any active chest pain or discomfort at this time. Her echo did come back with an EF of 30-35% which is improved from her previous EF 1 year ago. Cardiology recommending LifeVest and will order this in hopes that it come in tomorrow. Exam Narrative: GENERAL: Comfortable, no acute distress HENMT: moist mucous membranes EYES: EOM intact b/l NECK: no lymphadenopathy RESPIRATORY: clear to auscultation CARDIO: RRR GI: soft, nontender, bowel sounds present SKIN: no rashes EXTREMITIES: no edema, redness or tenderness Objective Data Vital Signs Vital Signs: Vital Signs - 24 hr 03/14/23 16:47 03/14/23 17:16 03/14/23 17:40 Temperature 98 F Pulse Rate 101 H 102 H 102 H Respiratory Rate 19 20 18 Blood Pressure 105/70 105/62 97/57 L Pulse Oximetry 98 98 98 Oxygen Delivery Oxygen Flow Rate 03/14/23 17:35 03/14/23 18:00 03/14/23 19:26 Temperature 97.7 F Pulse Rate 95 100 Respiratory Rate 18 Blood Pressure 86/54 L Pulse Oximetry 98 97 Oxygen Delivery Nasal Cannula Oxygen Flow Rate 2 03/14/23 21:17 03/14/23 20:30 03/14/23 22:00 Temperature Pulse Rate 99 Respiratory Rate Blood Pressure 91/63 L Pulse Oximetry 97 Oxygen Delivery Nasal Cannula Oxygen Flow Rate 2 03/14/23 23:50 03/15/23 0
[2023-03-15 17:05] LABS: Glucose Point of Care 115 mg/dl (65-105)
[2023-03-15] MEDS: carvediloL 3.125 MG TABLET PO (20:24)
[2023-03-15 20:36] LABS: Glucose Point of Care 132 mg/dl (65-105)
[2023-03-16] VITALS (9 sets, daily range): BP systolic 90–116; BP diastolic 43–82; PULSE 67–94; RESP 16–18; TEMP 36.3–36.4; O2SAT 98–100
[2023-03-16 05:33] LABS: Hematocrit 38.8 % (37.0-47.0); Hemoglobin 12.6 g/dL (12.0-15.0); Mean Corpuscular HGB Conc 32.5 g/dl (32-36); Mean Corpuscular Hemoglobin 30.4 pg (26-34); Mean Corpuscular Volume 93.7 fl (80-100); Mean Platelet Volume 10.1 fl (7.4-10.4); Platelet Count Result 233 k/mm3 (150-375); Red Blood Count 4.14 M/mm3 (4.2-5.4); Red Cell Distribution Width 13.2 % (11.5-14.5); White Blood Count 7.8 K/mm3 (4.5-10.0)
[2023-03-16 05:41] LABS: Alanine Aminotransferase 23 U/L (6-35); Albumin Level 3.8 g/dL (3.5-5.1); Alkaline Phosphatase 64 U/L (38-126); Anion Gap 9 mmol/L (8-16); Aspartate Amino Transferase 24 U/L (14-36); Bilirubin,Total 0.7 mg/dL (0.2-1.3); Blood Urea Nitrogen 19 mg/dL (7-17); Calcium 9.3 mg/dL (8.4-10.2); Carbon Dioxide 25 mmol/L (22-30); Chloride 103 mmol/L (98-107); Estimated CRCL calculation 52 ml/min; Estimated Glomerular Filt Rate > 60; Glucose 134 mg/dL (65-110); Potassium 3.7 mmol/L (3.4-5.0); Sodium 137 mmol/L (137-145)
[2023-03-16 08:23] LABS: Glucose Point of Care 149 mg/dl (65-105)
--- NOTE | 2023-03-16 09:06 | PC.NURSE ---
BP 90/43 at 0447. Now 99/52. HR 80. Dr. Ward made aware. Advised to hold Coreg at this time.
[2023-03-16] MEDS: PANTOPRAZOLE 40 MG TABLET PO (09:10)
[2023-03-16] MEDS: ASPIRIN 81 MG ENTERIC TABLET PO (09:10)
--- NOTE | 2023-03-16 10:17 | PM.PNCARD ---
Progress Note: A&P Assessment and Plan (1) Atrial flutter: Code(s): I48.92 - Unspecified atrial flutter Status: Acute Assessment and Plan: She does not have atrial flutter.? She has sinus tachycardia related to extreme anxiety and stress reaction. Now back in normal sinus rhythm. (2) Takotsubo cardiomyopathy: Code(s): I51.81 - Takotsubo syndrome Status: Acute Assessment and Plan: She has history of takotsubo cardiomyopathy last year.? She has had 2 normal coronary angiograms within the past 1-2 years.? She was very anxious and her symptoms likely represent another episode of takotsubo or even what could be considered variant angina. Echocardiogram shows LVEF 30-35% with regional wall motion abnormalities consistent with stress cardiomyopathy. Discontinued Diltiazem. Lisinopril has been on hold due to soft blood pressures -- instructed patient to closely monitor blood pressures at home and follow up with her primary lead instructor/flight attendant for optimization of GDMT as tolerated. Added low dose Coreg which she is tolerating thus far. (3) Non-ST elevation myocardial infarction (NSTEMI): Code(s): I21.4 - Non-ST elevation (NSTEMI) myocardial infarction Status: Acute Assessment and Plan: Continue aspirin and other meds as above.? Not related to acute plaque rupture (4) Hypertension associated with diabetes: Code(s): E11.59 - Type 2 diabetes mellitus with other circulatory complications; I15.2 - Hypertension secondary to endocrine disorders Status: Acute Assessment and Plan: Recent baseline hypertension.? Her blood pressure during this hospitalization have been on the softer side. Lisinopril has been placed on hold. Will continue with low dose Coreg for now. Her home Chlorthalidone has been discontinued. Instructed patient to closely monitor her blood pressures at home and follow up with her primary lead instructor/flight attendant. (5) Hyperlipidemia associated with type 2 diabetes mellitus: Code(s): E11.69 - Type 2 diabetes mellitus with other specified complication; E78.5 - Hyperlipidemia, unspecified Status: Acute Assessment and Plan: Continue home Zetia Plan Okay to discharge home today from a cardiology standpoint. Subjective Date/time seen: 03/16/23 10:17 Interval history: Reason for visit: Takotsubo cardiomyopathy HPI: Patient is a 72-year-old female who has a history of takotsubo cardiomyopathy.? She has had 2 coronary angiograms performed in the past year and a half that does not show significant coronary disease.? She has extreme anxiety and was admitted to this hospital last year and underwent a coronary angiogram.? She had an ejection fraction of 25-30% with wall motion abnormalities consistent with takotsubo cardiomyopathy.? She follows with Dr. ALICEA at [facility].? She in up having another stress test and other catheterization performed this year.? She had been doing okay up until yesterday.? She was having some anxiety about a procedure that was being performed as an outpatient.? She is seeing Dr. Rivera for a spinal nerve block injection.? Near the end of the procedure she became very anxious nervous became diaphoretic and felt her heart pounding.? She had severe chest pain at that point which persisted for the next 12-16 hours.? She describes as shortness and tightness.? She was not short of breath.? She had no recent exertional symptoms.? No syncope, presyncope, paroxysmal nocturnal dyspnea, orthopnea, edema.? Initial EKG showed sinus tachycardia.? There was a follow-up EKG that the computer read as being atrial flutter and therefore we were consulted for atrial flutter.? This EKG clearly shows atrial mechanism and sinus tachycardia.? Patient no longer has any pain.? Her troponins were elevated in a did rise to a level of 1.55. Date of service 03/16: She is feeling well this morning without any complaints. Getting her Life Vest this morning. Review of Systems Review of Systems:
[2023-03-16] MEDS: carvediloL 3.125 MG TABLET PO (10:22)
--- NOTE | 2023-03-16 10:49 | PM.DS ---
DS: Admitting Diagnosis Discharge Date 03/16/23 Admitting Diagnosis tachycardia, CHF DS: Discharge Diagnosis Discharge Diagnosis (1) Atrial flutter: Code(s): I48.92 - Unspecified atrial flutter Status: Acute (2) Non-ST elevation myocardial infarction (NSTEMI): Code(s): I21.4 - Non-ST elevation (NSTEMI) myocardial infarction Status: Acute (3) Acute respiratory failure with hypoxia: Code(s): J96.01 - Acute respiratory failure with hypoxia Status: Acute (4) Takotsubo cardiomyopathy: Code(s): I51.81 - Takotsubo syndrome Status: Acute (5) Congestive heart failure: Code(s): I50.9 - Heart failure, unspecified Status: Acute (6) Vertebrogenic low back pain: Code(s): M54.51 - Vertebrogenic low back pain Status: Acute (7) Chronic pain: Code(s): G89.29 - Other chronic pain Status: Acute (8) Type 2 diabetes mellitus: Code(s): E11.9 - Type 2 diabetes mellitus without complications Status: Acute DS: Summary Hospital Course Hospital Course: This is a 72-year-old female with a past medical history of Takotsubo cardiomyopathy, hypertension, diabetes, GERD, dorsalgia and chronic back pain the present to the ED on 03/14/2023 from the pain management office where she was supposed to receive a nerve block. Patient has severe anxiety and started to have chest pains at the time of her nerve block. She was found to have an elevated heart rate in the ED. Initially was presumed to be atrial flutter but Cardiology ruled this out. She did have elevated troponins which were trended. Cardiology recommended continuing aspirin and home medications with no further intervention at that time. Patient's anxiety control was discussed at length in his thought that these chest pains and heart rate were due to this. She did have a echocardiogram done which revealed an EF of 30-35%. She was started on carvedilol 3.125 p.o. b.i.d. as well as a life vest. Patient did have some hypotension with the addition of carvedilol and her lisinopril and chlorthalidone were both put on hold. She tolerated her carvedilol well. Cardiology cleared patient for discharge after life vest was put on. Recommend that she follow-up with Cardiology further recommendations. She plans to follow-up with her PCP regarding anxiety as well as her blood pressure log that she is going to keep between now and her visit. Her labs and vital signs are stable and she is medically clear for discharge at this time. Time Spent with Patient Time attestation: Total time spent providing and/or coordinating discharge services: Exam Narrative: GENERAL: Comfortable, no acute distress HENMT: moist mucous membranes EYES: EOM intact b/l NECK: no lymphadenopathy RESPIRATORY: clear to auscultation CARDIO: RRR GI: soft, nontender, bowel sounds present SKIN: no rashes EXTREMITIES: no edema, redness or tenderness DS: Data Data Completed and Pending Labs on day of discharge: Labs from last 24 hours 03/16/23 03/16/23 03/15/23 08:12 05:07 20:12 WBC 7.8 RBC 4.14 L Hgb 12.6 Hct 38.8 MCV 93.7 MCH 30.4 MCHC 32.5 RDW 13.2 Plt Count 233 MPV 10.1 Sodium 137 Potassium 3.7 Chloride 103 Carbon Dioxide 25 Anion Gap 9 BUN 19 H Creatinine 0.80 Estim Creat Clear Calc 52 Estimated GFR > 60 Glucose 134 H POC Capillary Glucose 149 H 132 H Calcium 9.3 Total Bilirubin 0.7 AST 24 ALT 23 Alkaline Phosphatase 64 Total Protein 7.0 Albumin 3.8 03/15/23 17:01 WBC RBC Hgb Hct MCV MCH MCHC RDW Plt Count MPV Sodium Potassium Chloride Carbon Dioxide Anion Gap BUN Creatinine Estim Creat Clear Calc Estimated GFR Glucose POC Capillary Glucose 115 H Calcium Total Bilirubin AST ALT Alkaline Phosphatase Total Protein Albumin Discharge Plan Discharge Attending subhash
== END 2023-03-16 12:05 | disposition home or self-care (01) | DRG 282 ==
LOC: ANHED 12:30 → ANHIMU 17:02
PROVIDERS: Emergency Medicine; Student in an Organized Health Care Education/Training Program; Admitting Provider Family Medicine; Emergency Provider Student in an Organized Health Care Education/Training Program; Visit Provider Internal Medicine Critical Care Medicine
DX: I51.81 Takotsubo syndrome (principal); I21.A1 Myocardial infarction type 2; I11.0 Hypertensive heart disease with heart failure; I50.9 Heart failure, unspecified; R00.0 Tachycardia, unspecified; K21.9 Gastro-esophageal reflux disease without esophagitis; E78.5 Hyperlipidemia, unspecified; E11.9 Type 2 diabetes mellitus without complications; M19.012 Primary osteoarthritis, left shoulder; M54.51 Vertebrogenic low back pain; G89.29 Other chronic pain; I25.2 Old myocardial infarction; Z79.82 Long term (current) use of aspirin
CPT/HCPCS: 36415; 71046; 78582; 80053; 82948; 83690; 83880; 84443; 84484; 85025; 85027; 85380; 85610; 85730; 93005; 93306; 96374; 99285; A9270; A9540; A9558